=== PATIENT | male | born 1955 | race African-American/Black ===

== ENCOUNTER 2017-11-26 15:36 | Inpatient (IN) ==
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
[2017-11-26] MEDS ORDERED: Naloxone Inj 0.4 MG/ML Vial IV.PUSH PRN (18:40)
[2017-11-26] MEDS ORDERED: Acetaminophen 325 MG Tablet PO PRN (18:40)
[2017-11-26] MEDS ORDERED: Temazepam 15 MG Capsule PO PRN (21:00)
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
[2017-11-27 02:54] LABS: Baso % (Auto) 0.4 % (0.0-2.0); Eos % (Auto) 0.2 % (0.0-4.0); Hematocrit 36.7 % (39.0-51.0); Hemoglobin 12.5 gm/dL (13.0-17.0); Lymph # (Auto) 1.8 th/mm3 (1.0-4.8); Lymph % (Auto) 23.3 % (9.0-44.0); Mean Corpuscular HGB Conc 34.2 % (32.0-36.0); Mean Corpuscular Hemoglobin 27.5 pg (27.0-34.0); Mean Corpuscular Volume 80.6 fL (80.0-100.0); Mono # (Auto) 0.8 th/mm3 (0.0-0.9); Mono % (Auto) 10.9 % (0.0-8.0); Neut # (Auto) 4.9 th/mm3 (1.8-7.7); Neut % (Auto) 65.2 % (16.0-70.0); Platelet Count 253 th/mm3 (150-450); Red Blood Count 4.55 mil/mm3 (4.50-5.90); Red Cell Distribution Width 14.4 % (11.6-17.2); White Blood Count 7.5 th/mm3 (4.0-11.0)
[2017-11-27 03:04] LABS: Activated Partial Thrombo Time 25.1 sec (24.3-30.1); INR 1.1 Ratio; Prothrombin Time 10.7 sec (9.8-11.6)
[2017-11-27 03:09] LABS: Calcium 9.1 mg/dL (8.5-10.1); Potassium 3.9 meq/L (3.5-5.1)
[2017-11-27] MEDS: Sod Chloride 0.9% Inj 1,000 ML IV.CONT SCH ×2 (04:44→12:59)
[2017-11-27] MEDS ORDERED: ceFAZolin 2 GM Premix Inj 2 GM/50 ML PIGGYBACK IV.SIG ONE (07:12)
[2017-11-27] MEDS: Morphine Inj 4 MG/ML Vial IV.PUSH PRN (07:55)
[2017-11-27] MEDS ORDERED: Metoprolol Tartrate 25 MG Tablet PO SCH (08:15)
[2017-11-27] MEDS ORDERED: Chlorhexidine Gluconate 2% 1 Pack (2 Cloths) TOPICAL SCH (08:15)
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
[2017-11-27] MEDS ORDERED: Post-op Orders (for Pharmacy) OTHER STA (08:44)
[2017-11-27] MEDS ORDERED: Bisacodyl 10 MG Supp RECTAL PRN (08:44)
--- NOTE | 2017-11-27 08:52 | P.OP ---
- Preoperative Diagnosis (1) Fracture of tibial plateau, closed (2) Fracture of fibula, proximal Date of procedure: 11/27/17 Procedure: Closed reduction and external fixation of comminuted bicondylar left tibial plateau fracture Implants: Orthofix Anesthesia: GETA Surgeon: Billy Celestin MD Card Doffer: FREYA Tobias PA-C The surgical procedure was assisted by my physician assistant news director. My P.A. presence was necessary throughout this case for the manipulation and positioning of the surgical extremity. My P.A. was assisting me throughout the duration of this procedure. The skill set of a physician assistant news director was medically necessary to complete this procedure. During the surgical case the surgical nurse was working at the back table and the physician assistant news director was directly assisting me. Operation and Findings: This patient sustained an injury resulting in comminuted fractures of [left tibial plateau]. Patient was seen and evaluated preoperatively and found to have too much swelling to proceed with open reduction internal fixation. Risk and benefits of surgery were discussed in depth with patient and informed consent was confirmed. Surgical site was marked. Patient was brought to operating room and placed on the OR table. Patient was given IV sedation and GETA. Patient received IV antibiotics and timeout procedure was performed. Operative leg was prepped with alcohol followed by Hibiclens and draped in the usual sterile fashion. Two small incisions were made along the anterior femur and the tibia. Soft tissue was dissected bluntly. Cannulas were placed down to the cortex of bone. Pin sites were predrilled. Synthes BROWN-coated pins were placed into the femur and tibia. Fluoroscopy was used to confirm appropriate pin placement. An external fixator construct was now created with clamps and bars. Next attention was turned to reduction. Traction was applied. Fracture was manipulated. Good alignment of the fracture was obtained. There is severe comminution of the fracture. Fluoroscopy was used to confirm appropriate alignment of fracture. The external fixator was now tightened to hold reduction. Sterile dressings were applied. Patient was awakened and transferred to recovery room in stable condition. The soft tissue was reevaluated. Patient did have swelling around the knee and calf but compartments were soft and compressible with no signs of compartment syndrome.
[2017-11-27] MEDS ORDERED: Sodium Chlor 0.9% Inj 250 ML IV.SIG SCH (09:00)
[2017-11-27] MEDS ORDERED: Enoxaparin Inj 40 MG/0.4 ML Syringe SQ SCH (09:00)
[2017-11-27] MEDS ORDERED: Sodium Chlor 0.9% Inj 500 ML IV.SIG SCH (09:00)
[2017-11-27] MEDS ORDERED: fentaNYL Citrate Inj 100 MCG/2 ML Ampul ONE (09:04)
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
[2017-11-27] MEDS: Ketorolac Inj 30 MG/ML (IVP) Vial IV.PUSH SCH ×2 (10:18→18:51)
[2017-11-27] MEDS ORDERED: Ketorolac Inj 30 MG/ML (IVP) Vial IV.PUSH ONE (12:00)
[2017-11-27] MEDS ORDERED: Lidocaine PF 1% Inj 5 ML Syringe INFILTRATN ONE (12:00)
[2017-11-27] MEDS ORDERED: Phenylephrine/NS 1000 MCG/10ML Syringe IV.PUSH ONE (12:00)
[2017-11-27] MEDS: Multivitamin/Minerals Therapeutic Tablet PO SCH (12:59)
--- NOTE | 2017-11-27 13:17 | XR ---
EXAM DATE: 11/27/2017 12:49 PM EDT AGE/SEX: 62 years / Male INDICATIONS: Left knee closed reduction, external fixation. CLINICAL DATA: This is the patient's initial encounter. Patient reports that signs and symptoms have been present for 1 day and indicates a pain score of Nonresponsive. MEDICAL/SURGICAL HISTORY: None. None. COMPARISON: No prior exams available for comparison. FINDINGS: 2 pins are seen in the distal tibia. Alignment across the tibial plateau is reasonably anatomic. CONCLUSION: Near-anatomic alignment across the severely comminuted fracture of the tibial plateau with external f ixation. Electronically signed by: Adryan Calvo MD 11/27/2017 1:16 PM EDT
--- NOTE | 2017-11-27 14:13 | ECG ---
Date Performed: 11/27/2017 Time Performed: 06:49:42 PTAGE: 62 years EKG: Sinus rhythm BORDERLINE LEFT AXIS DEVIATION MODERATE VOLTAGE CRITERIA FOR LVH, CONSIDER NORMAL VARIANT BORDERLINE ECG NO PREVIOUS TRACING DOCTOR: Braulio Alanis Interpretating Date/Time 11/27/2017 14:13:08
--- NOTE | 2017-11-27 14:31 | CT ---
EXAM DATE: 11/27/2017 2:04 PM EDT AGE/SEX: 62 years / Male INDICATIONS: Left leg fracture. CLINICAL DATA: This is the patient's initial encounter. Patient reports that signs and symptoms have been present for 1 day and indicates a pain score of 7/10. MEDICAL/SURGICAL HISTORY: None. . External fixator RADIATION DOSE: 8.29 CTDI (mGy) COMPARISON: No prior exams available for comparison. TECHNIQUE: Multiple contiguous axial images were acquired using a multirow detector CT scanner witho ut contrast. Multiplanar reconstruction was performed in the sagittal and coronal planes. Using aut omated exposure control and adjustment of the mA and/or kV according to patient size, radiation dose was kept as low as reasonably achievable to obtain optimal diagnostic quality images. DICOM format i mage data is available electronically for review and comparison. FINDINGS: Bones: A severely comminuted fracture is identified through the tibial plateau. Significant anterior displacement is identified of a large medial tibial plateau fragment. Fragments containing the later al articulating surface are angulated and distracted. Comminuted fracture the proximal fibula is also noted. The distal femur and patella are intact. Joints: Significant disruption is identified of both the medial and lateral joint compartments due t o comminuted fracture. A fat fluid level is identified within the joint space. Soft Tissues: Significant soft tissue swelling is noted in the lower thigh and surrounding the knee joint. There is marked prepatellar soft tissue swelling and hematoma. Other: No foreign bodies seen. CONCLUSION: 1. Severely comminuted fracture of the tibial plateau extending in to both the medial and lateral brittney int compartments with significant fracture fragment displacement. 2. Moderate joint effusion with fat/fluid level. 3. Fractured proximal fibula 4. Intact distal femur and patella Electronically signed by: Brian Ruth MD 11/27/2017 2:30 PM EDT
[2017-11-27] MEDS: ceFAZolin 2 GM Premix Inj 2 GM/50 ML PIGGYBACK IV.SIG SCH (15:50)
[2017-11-27] MEDS: Enoxaparin Inj 40 MG/0.4 ML Syringe SQ SCH (22:40)
[2017-11-28] MEDS: Sod Chloride 0.9% Inj 1,000 ML IV.CONT SCH ×3 (03:08→18:41)
[2017-11-28] MEDS: ceFAZolin 2 GM Premix Inj 2 GM/50 ML PIGGYBACK IV.SIG SCH ×2 (03:09→06:16)
[2017-11-28] MEDS: Ketorolac Inj 30 MG/ML (IVP) Vial IV.PUSH SCH ×3 (03:23→18:41)
--- NOTE | 2017-11-28 06:56 | P.PNOP ---
Subjective Interval history: s/p exfix left tibial plateau fx doing well. states knee feels better. no complaints. Physical Exam Vital signs: Vital Signs 11/27/17 08:55 11/27/17 09:00 11/27/17 09:15 Temperature 98.4 F Pulse Rate 95 H 90 84 Respiratory Rate 20 21 21 Blood Pressure 147/90 H 167/92 H 154/72 H Pulse Oximetry 100 100 100 11/27/17 09:30 11/27/17 10:00 11/27/17 12:00 Temperature 98.4 F 98.1 F Pulse Rate 82 84 92 H Respiratory Rate 22 24 18 Blood Pressure 162/84 H 177/85 H 162/99 H Pulse Oximetry 99 100 94 L 11/27/17 16:00 11/27/17 20:00 11/28/17 00:00 Temperature 98.5 F 99 F 98.4 F Pulse Rate 92 H 108 H 57 L Respiratory Rate 20 20 20 Blood Pressure 160/91 H 148/81 H 162/77 H Pulse Oximetry 99 97 97 11/28/17 04:00 Temperature 99.4 F Pulse Rate 108 H Respiratory Rate 20 Blood Pressure 149/79 H Pulse Oximetry 96 Intake & Output 11/27/17 11/27/17 11/28/17 06:59 18:59 06:59 Intake Total 240 / 240 1020 / 1020 1530 / 1530 Output Total 250 / 250 655 / 655 Balance -10 / -10 365 / 365 1530 / 1530 Weight 97.522 kg 97.52 kg Intake: IV 100 / 100 1050 / 1050 LR 1000 mL Inj 1,000 ML @ 80 1000 / 1000 mls/hr IV.CONT .[id number] DEJA Rx# :[id number] Ancef 2 GM Premix Inj 2 gm In 100 / 100 50 / 50 50 ml @ 200 mls/hr IV.SIG Q8H DEJA Rx#:[id number] Oral 240 / 240 620 / 620 480 / 480 Anesthesia Amount 300 / 300 Output: Urine 250 / 250 650 / 650 Estimated Blood Loss 5 / 5 Other: # Voids 1 # Bowel Movements 0 Narrative: LLE: exfix in place. pin sites clean. nvi distally with good dorsiflexion. 2+ swelling of lower leg. compartments soft Results - Labs CBC & Chem 7: 11/27/17 02:40 11/27/17 02:40 - Imaging Impressions Knee CT 11/27/17 00:00 CONCLUSION: 1. Severely comminuted fracture of the tibial plateau extending in to both the medial and lateral joint compartments with significant fracture fragment displacement. 2. Moderate joint effusion with fat/fluid level. 3. Fractured proximal fibula 4. Intact distal femur and patella Knee X-Ray 11/27/17 00:00 CONCLUSION: Near-anatomic alignment across the severely comminuted fracture of the tibial plateau with external fixation. - Procedures Closed reduction and external fixation of comminuted bicondylar left tibial plateau fracture Assessment and Plan - Assessment and Plan 1) Left Bicondylar Tibial Plateau Fx s/p exfix - POD 1 -NWB -elevate at all times -ice down knee and lower leg with large trash bags of ice -toradol -pin care BID with saline/peroxide mix -will re-eval each day for swelling to improve. once swelling is at acceptable level, will plan for ORIF of tibial plateau
[2017-11-28 08:25] LABS: Baso # (Auto) 0.1 th/mm3 (0.0-0.2); Baso % (Auto) 0.8 % (0.0-2.0); Eos % (Auto) 0.2 % (0.0-4.0); Hematocrit 30.8 % (39.0-51.0); Hemoglobin 10.3 gm/dL (13.0-17.0); Lymph # (Auto) 2.4 th/mm3 (1.0-4.8); Lymph % (Auto) 27.1 % (9.0-44.0); Mean Corpuscular HGB Conc 33.6 % (32.0-36.0); Mean Corpuscular Hemoglobin 27.5 pg (27.0-34.0); Mean Corpuscular Volume 81.9 fL (80.0-100.0); Mean Platelet Volume 8.2 fL (7.0-11.0); Mono # (Auto) 1.1 th/mm3 (0.0-0.9); Mono % (Auto) 11.8 % (0.0-8.0); Neut # (Auto) 5.4 th/mm3 (1.8-7.7); Neut % (Auto) 60.1 % (16.0-70.0); Platelet Count 209 th/mm3 (150-450); Red Blood Count 3.76 mil/mm3 (4.50-5.90); Red Cell Distribution Width 14.4 % (11.6-17.2)
[2017-11-28] MEDS: Multivitamin/Minerals Therapeutic Tablet PO SCH (08:44)
[2017-11-28] MEDS: Enoxaparin Inj 40 MG/0.4 ML Syringe SQ SCH (08:44)
[2017-11-28 08:47] LABS: Calcium 8.7 mg/dL (8.5-10.1); Carbon Dioxide 23.9 meq/L (21.0-32.0); Magnesium 2.5 mg/dL (1.5-2.5); Potassium 3.9 meq/L (3.5-5.1)
[2017-11-28 09:06] LABS: CKMB Percent 0.2 % (0.0-4.0); Creatine Kinase MB 1.6 ng/mL (0.5-3.6)
--- NOTE | 2017-11-28 15:25 | P.PN ---
Subjective Interval history: F/u anemia and PAWAN. No complaints Physical Exam Vital signs: Vital Signs 11/27/17 16:00 11/27/17 20:00 11/28/17 00:00 Temperature 98.5 F 99 F 98.4 F Pulse Rate 92 H 108 H 57 L Respiratory Rate 20 20 20 Blood Pressure 160/91 H 148/81 H 162/77 H Pulse Oximetry 99 97 97 11/28/17 04:00 11/28/17 08:00 11/28/17 12:00 Temperature 99.4 F 97.9 F 98.4 F Pulse Rate 108 H 86 118 H Respiratory Rate 20 18 Blood Pressure 149/79 H 115/72 142/74 H Pulse Oximetry 96 98 100 11/28/17 13:00 Temperature Pulse Rate Respiratory Rate 18 Blood Pressure Pulse Oximetry Intake & Output 11/27/17 11/28/17 11/28/17 18:59 06:59 18:59 Intake Total 1020 / 1020 1530 / 1530 50 / 50 Output Total 655 / 655 Balance 365 / 365 1530 / 1530 50 / 50 Weight 97.52 kg Intake: IV 100 / 100 1050 / 1050 50 / 50 LR 1000 mL Inj 1,000 ML @ 80 1000 / 1000 mls/hr IV.CONT .[id number] DEJA Rx# :[id number] Ancef 2 GM Premix Inj 2 gm In 100 / 100 50 / 50 50 / 50 50 ml @ 200 mls/hr IV.SIG Q8H DEJA Rx#:[id number] Oral 620 / 620 480 / 480 Anesthesia Amount 300 / 300 Output: Urine 650 / 650 Estimated Blood Loss 5 / 5 Other: # Voids 1 # Bowel Movements 0 Narrative: GENERAL: This is a well-nourished, well-developed patient, in no apparent distress. CARDIOVASCULAR: Regular rate and rhythm without murmurs, gallops, or rubs. RESPIRATORY: Clear to auscultation. Breath sounds equal bilaterally. No wheezes , rales, or rhonchi. GASTROINTESTINAL: Abdomen soft, non-tender, nondistended. Normal active bowel sounds MUSCULOSKELETAL: Ex fix in place NEURO: Alert & Oriented x4 to person, place, time, situation. Moves all ext x4 Results - Labs CBC & Chem 7: 11/28/17 07:53 11/28/17 07:53 Laboratory Results - last 24 hr 11/28/17 11/28/17 07:53 07:53 WBC 9.0 RBC 3.76 L Hgb 10.3 L D Hct 30.8 L MCV 81.9 MCH 27.5 MCHC 33.6 RDW 14.4 Plt Count 209 MPV 8.2 Neut % (Auto) 60.1 Lymph % (Auto) 27.1 Gage % (Auto) 11.8 H Eos % (Auto) 0.2 Baso % (Auto) 0.8 Neut # (Auto) 5.4 Lymph # (Auto) 2.4 Gage # (Auto) 1.1 H Eos # (Auto) 0.0 Baso # (Auto) 0.1 WBC Differential . Differential Comment Auto diff final Sodium 143 Potassium 3.9 Chloride 109 H Carbon Dioxide 23.9 Anion Gap 10 BUN 24 H Creatinine 1.49 H Estimated GFR 58 L Random Glucose 99 Calcium 8.7 Magnesium 2.5 Total Creatine Kinase 934 H CK-MB (CK-2) 1.6 CK-MB (CK-2) % 0.2 - Procedures Closed reduction and external fixation of comminuted bicondylar left tibial plateau fracture Assessment and Plan - Assessment (1) Fracture of tibial plateau, closed Code(s): S82.143A - Displaced bicondylar fracture of unspecified tibia, initial encounter for closed fracture Status: Acute (2) Fracture of fibula, proximal Code(s): S82.839A - Other fracture of upper and lower end of unspecified fibula , initial encounter for closed fracture Status: Acute - Plan 1. Tibial plateau fracture Knee x-ray significant for extremely comminuted fractures of the proximal tibia involving the medial and lateral plateaus with a comminuted and impacted fracture of the fibular head and neck Closed reduction and external fixation of comminuted bicondylar left tibial plateau fracture. Further surgery by orthopedic surgery when swelling much improved. Continue ice 2. Anemia secondary to acute blood loss. Will monitor Pain control with Lortab and IV morphine. Physical therapy evaluation Wound care #3. Acute kidney injury creatinine 1.49. Likely from rhabdomyolysis will continue IV hydration. Avoid nephrotoxins FEN Pharmacologic anticoagulation per ortho started on Lovenox Discharge Planning: Not ready for discharge patient has external fixator (1) Fracture of tibial plateau, closed Qualifiers: Encounter type: initial encounter Laterality: left Qualified Code(s): S82.142A - Displaced bicondylar fracture of left tibia, initial encounter for closed fracture (2) Fracture of fibula, proximal Qualifiers: Encounter type: initial encounter Fracture type: closed Fracture morphology : unspecified fracture morphology Laterality: left Qualified Code(s): S82.832A - Other fracture of upper and lower end of left fibula, initial encounter for closed fracture
[2017-11-28] MEDS: Promethazine 25 MG Supp RECTAL PRN (15:32)
[2017-11-29] MEDS: Ketorolac Inj 30 MG/ML (IVP) Vial IV.PUSH SCH (01:15)
[2017-11-29] MEDS: Sod Chloride 0.9% Inj 1,000 ML IV.CONT SCH ×2 (05:56→20:36)
[2017-11-29 07:28] LABS: Baso % (Auto) 0.5 % (0.0-2.0); Eos # (Auto) 0.1 th/mm3 (0.0-0.4); Eos % (Auto) 0.6 % (0.0-4.0); Hematocrit 29.5 % (39.0-51.0); Lymph # (Auto) 2.2 th/mm3 (1.0-4.8); Mean Corpuscular Hemoglobin 27.8 pg (27.0-34.0); Mean Corpuscular Volume 81.7 fL (80.0-100.0); Mean Platelet Volume 8.2 fL (7.0-11.0); Mono # (Auto) 0.7 th/mm3 (0.0-0.9); Mono % (Auto) 8.3 % (0.0-8.0); Neut # (Auto) 5.2 th/mm3 (1.8-7.7); Neut % (Auto) 63.6 % (16.0-70.0); Platelet Count 219 th/mm3 (150-450); Red Blood Count 3.61 mil/mm3 (4.50-5.90); Red Cell Distribution Width 14.2 % (11.6-17.2); White Blood Count 8.3 th/mm3 (4.0-11.0)
[2017-11-29 07:51] LABS: Calcium 8.6 mg/dL (8.5-10.1); Carbon Dioxide 26.2 meq/L (21.0-32.0); Magnesium 2.3 mg/dL (1.5-2.5); Potassium 3.7 meq/L (3.5-5.1)
[2017-11-29 08:11] LABS: CKMB Percent 0.2 % (0.0-4.0); Creatine Kinase MB 1.2 ng/mL (0.5-3.6)
[2017-11-29] MEDS: Multivitamin/Minerals Therapeutic Tablet PO SCH (08:32)
[2017-11-29] MEDS: Enoxaparin Inj 40 MG/0.4 ML Syringe SQ SCH (08:32)
--- NOTE | 2017-11-29 08:55 | P.PNOP ---
Subjective Interval history: Resting comfortably with no new complaints Physical Exam Vital signs: Vital Signs 11/28/17 12:00 11/28/17 13:00 11/28/17 16:00 Temperature 98.4 F 98.1 F Pulse Rate 118 H 57 L Respiratory Rate 18 Blood Pressure 142/74 H 167/79 H Pulse Oximetry 100 98 11/28/17 20:00 11/29/17 00:00 11/29/17 00:21 Temperature 99.3 F 99.2 F Pulse Rate 91 H 97 H 91 H Respiratory Rate 18 18 Blood Pressure 152/92 H 167/102 H 162/96 H Pulse Oximetry 98 98 11/29/17 04:00 11/29/17 08:00 Temperature 99.1 F 98.7 F Pulse Rate 88 81 Respiratory Rate 18 18 Blood Pressure 143/87 H 164/91 H Pulse Oximetry 96 99 Intake & Output 11/28/17 11/29/17 11/29/17 18:59 06:59 18:59 Intake Total 2670 / 2670 240 / 240 Output Total 650 / 650 750 / 750 Balance 2019 -510 / -510 Weight 97.52 kg Intake: IV 2049 / 2049 LR 1000 mL Inj 1,000 ML @ 80 1000 / 1000 mls/hr IV.CONT .[id number] DEJA Rx# :[id number] NS Inj 1,000 ML @ 100 mls/hr IV 1000 / 1000 .CONT .Q10H DEJA Rx#:[id number] Ancef 2 GM Premix Inj 2 gm In 50 / 50 50 ml @ 200 mls/hr IV.SIG Q8H DEJA Rx#:[id number] Oral 620 / 620 240 / 240 Output: Urine 650 / 650 750 / 750 Other: # Bowel Movements 0 Narrative: GENERAL: This is a well-nourished, well-developed patient, in no apparent distress. Left lower extremity: No pain with hip range of motion. External fixation in place. Pin sites clean and dry. Continued swelling over tibial plateau and surrounding knee. Intact sensation distally with active dorsiflexion plantar flexion of foot Results - Labs CBC & Chem 7: 11/29/17 06:06 11/29/17 06:06 Laboratory Results - last 24 hr 11/28/17 11/29/17 11/29/17 07:53 06:06 06:06 WBC 8.3 RBC 3.61 L Hgb 10.0 L Hct 29.5 L MCV 81.7 MCH 27.8 MCHC 34.0 RDW 14.2 Plt Count 219 MPV 8.2 Neut % (Auto) 63.6 Lymph % (Auto) 27.0 Dillon % (Auto) 8.3 H Eos % (Auto) 0.6 Baso % (Auto) 0.5 Neut # (Auto) 5.2 Lymph # (Auto) 2.2 Dillon # (Auto) 0.7 Eos # (Auto) 0.1 Baso # (Auto) 0.0 WBC Differential . Differential Comment Auto diff final Sodium 143 Potassium 3.7 Chloride 109 H Carbon Dioxide 26.2 Anion Gap 8 BUN 16 Creatinine 1.19 Estimated GFR 75 L Random Glucose 103 Calcium 8.6 Magnesium 2.3 Total Creatine Kinase 762 H CK-MB (CK-2) 1.6 1.2 CK-MB (CK-2) % 0.2 0.2 - Procedures Closed reduction and external fixation of comminuted bicondylar left tibial plateau fracture Assessment and Plan - Assessment and Plan 1) Left Bicondylar Tibial Plateau Fx s/p exfix - POD 2 -NWB -elevate at all times -ice down knee and lower leg with large trash bags of ice -toradol -pin care BID with saline/peroxide mix -will re-eval each day for swelling to improve. once swelling is at acceptable level, will plan for ORIF of tibial plateau. I anticipate no earlier than Saturday for surgery
[2017-11-29] MEDS: Senna/Docusate Sodium 8.6/50 MG Tablet PO SCH ×2 (13:13→20:33)
[2017-11-29] MEDS: Promethazine 25 MG Supp RECTAL PRN (13:14)
--- NOTE | 2017-11-29 17:18 | P.PN ---
Subjective Interval history: Follow-up orthopedic injury. Patient has been having nausea and vomiting and no bowel movement for several days. Patient started on bowel regimen earlier today after discussion with RN. At this time, he feels much better after having bowel movement about 30 minutes ago. Denies abdominal pain. Patient also educated that nausea and vomiting could be related to pain medicines. Physical Exam Vital signs: Vital Signs 11/28/17 20:00 11/29/17 00:00 11/29/17 00:21 Temperature 99.3 F 99.2 F Pulse Rate 91 H 97 H 91 H Respiratory Rate 18 18 Blood Pressure 152/92 H 167/102 H 162/96 H Pulse Oximetry 98 98 11/29/17 04:00 11/29/17 08:00 11/29/17 12:00 Temperature 99.1 F 98.7 F 98.7 F Pulse Rate 88 81 84 Respiratory Rate 18 18 20 Blood Pressure 143/87 H 164/91 H 174/87 H Pulse Oximetry 96 99 97 Intake & Output 11/28/17 11/29/17 11/29/17 18:59 06:59 18:59 Intake Total 2670 / 2670 240 / 240 Output Total 650 / 650 750 / 750 Balance 2019 / 2019 -510 / -510 Weight 97.52 kg Intake: IV 2049 / 2049 LR 1000 mL Inj 1,000 ML @ 80 1000 / 1000 mls/hr IV.CONT .[id number] DEJA Rx# :[id number] NS Inj 1,000 ML @ 100 mls/hr IV 1000 / 1000 .CONT .Q10H DEJA Rx#:[id number] Ancef 2 GM Premix Inj 2 gm In 50 / 50 50 ml @ 200 mls/hr IV.SIG Q8H DEJA Rx#:[id number] Oral 620 / 620 240 / 240 Output: Urine 650 / 650 750 / 750 Other: # Bowel Movements 0 Narrative: GENERAL: Well-developed and well-nourished in no distress SKIN: Warm and dry. CARDIOVASCULAR: Regular rate and rhythm without murmurs, gallops, or rubs. RESPIRATORY: Breath sounds equal bilaterally. No accessory muscle use. GASTROINTESTINAL: Abdomen soft, non-tender, nondistended. MUSCULOSKELETAL: No cyanosis, or edema. External fixator in place BACK: Nontender without obvious deformity. No CVA tenderness. Results - Labs CBC & Chem 7: 11/29/17 06:06 11/29/17 06:06 Laboratory Results - last 24 hr 11/29/17 11/29/17 06:06 06:06 WBC 8.3 RBC 3.61 L Hgb 10.0 L Hct 29.5 L MCV 81.7 MCH 27.8 MCHC 34.0 RDW 14.2 Plt Count 219 MPV 8.2 Neut % (Auto) 63.6 Lymph % (Auto) 27.0 [place] % (Auto) 8.3 H Eos % (Auto) 0.6 Baso % (Auto) 0.5 Neut # (Auto) 5.2 Lymph # (Auto) 2.2 [place] # (Auto) 0.7 Eos # (Auto) 0.1 Baso # (Auto) 0.0 WBC Differential . Differential Comment Auto diff final Sodium 143 Potassium 3.7 Chloride 109 H Carbon Dioxide 26.2 Anion Gap 8 BUN 16 Creatinine 1.19 Estimated GFR 75 L Random Glucose 103 Calcium 8.6 Magnesium 2.3 Total Creatine Kinase 762 H CK-MB (CK-2) 1.2 CK-MB (CK-2) % 0.2 - Procedures Closed reduction and external fixation of comminuted bicondylar left tibial plateau fracture Assessment and Plan - Assessment (1) Fracture of tibial plateau, closed Code(s): S82.143A - Displaced bicondylar fracture of unspecified tibia, initial encounter for closed fracture Status: Acute (2) Fracture of fibula, proximal Code(s): S82.839A - Other fracture of upper and lower end of unspecified fibula , initial encounter for closed fracture Status: Acute - Plan 1. Tibial plateau fracture Knee x-ray significant for extremely comminuted fractures of the proximal tibia involving the medial and lateral plateaus with a comminuted and impacted fracture of the fibular head and neck Closed reduction and external fixation of comminuted bicondylar left tibial plateau fracture. Further surgery by orthopedic surgery when swelling much improved, anticipate surgery early next week. Continue ice Pain control with Lortab and IV morphine. Physical therapy evaluation Wound care 2. Anemia secondary to acute blood loss. Will monitor 3. Acute kidney injury creatinine 1.49. Likely from rhabdomyolysis will continue IV hydration. Improving. Avoid nephrotoxins 4. Constipation with nausea and vomiting. Denies abdominal pain. Improved with bowel regimen. If persistent nausea may be related to narcotic. Will monitor FEN Pharmacologic anticoagulation per ortho started on Lovenox Discharge Planning: Not ready for discharge patient has external fixator (1) Fracture of tibial plateau, closed Qualifiers: Encounter type: initial encounter Laterality: left Qualified Code(s): S82.142A - Displaced bicondylar fracture of left tibia, initial encounter for closed fracture (2) Fracture of fibula, proximal Qualifiers: Encounter type: initial encounter Fracture type: closed Fracture morphology : unspecified fracture morphology Laterality: left Qualified Code(s): S82.832A - Other fracture of upper and lower end of left fibula, initial encounter for closed fracture
[2017-11-30] MEDS: Sod Chloride 0.9% Inj 1,000 ML IV.CONT SCH (00:26)
[2017-11-30 08:17] LABS: Baso % (Auto) 0.5 % (0.0-2.0); Eos # (Auto) 0.1 th/mm3 (0.0-0.4); Hematocrit 30.8 % (39.0-51.0); Hemoglobin 10.2 gm/dL (13.0-17.0); Lymph # (Auto) 2.2 th/mm3 (1.0-4.8); Lymph % (Auto) 29.7 % (9.0-44.0); Mean Corpuscular Volume 81.8 fL (80.0-100.0); Mean Platelet Volume 7.8 fL (7.0-11.0); Mono # (Auto) 0.6 th/mm3 (0.0-0.9); Mono % (Auto) 8.4 % (0.0-8.0); Neut # (Auto) 4.4 th/mm3 (1.8-7.7); Neut % (Auto) 60.4 % (16.0-70.0); Platelet Count 262 th/mm3 (150-450); Red Blood Count 3.77 mil/mm3 (4.50-5.90); Red Cell Distribution Width 13.9 % (11.6-17.2); White Blood Count 7.3 th/mm3 (4.0-11.0)
[2017-11-30 08:35] LABS: Carbon Dioxide 26.7 meq/L (21.0-32.0); Magnesium 2.4 mg/dL (1.5-2.5); Potassium 3.7 meq/L (3.5-5.1)
[2017-11-30] MEDS: Multivitamin/Minerals Therapeutic Tablet PO SCH (09:35)
[2017-11-30] MEDS: Senna/Docusate Sodium 8.6/50 MG Tablet PO SCH ×2 (09:35→23:20)
[2017-11-30] MEDS: Enoxaparin Inj 40 MG/0.4 ML Syringe SQ SCH (09:35)
[2017-11-30] MEDS ORDERED: Aluminum/Magnesium/Simethacone Susp 30 ML UDC PO PRN (16:47)
--- NOTE | 2017-11-30 16:51 | P.PN ---
Subjective Interval history: F/u nausea, vomiting. Intermittent N/v with epig pain not related to meals Physical Exam Vital signs: Vital Signs 11/29/17 20:00 11/30/17 00:00 11/30/17 08:00 Temperature 99.2 F 98.3 F 98.3 F Pulse Rate 97 H 88 98 H Respiratory Rate 16 17 20 Blood Pressure 161/98 H 158/94 H 156/88 H Pulse Oximetry 98 97 98 11/30/17 12:00 Temperature 98.9 F Pulse Rate 80 Respiratory Rate 18 Blood Pressure 166/95 H Pulse Oximetry 97 Intake & Output 11/29/17 11/30/17 11/30/17 18:59 06:59 18:59 Intake Total 640 / 640 3600 / 3600 Balance 640 / 640 3600 / 3600 Weight 97.52 kg Intake: IV 2000 / 2000 LR 1000 mL Inj 1,000 ML @ 80 1000 / 1000 mls/hr IV.CONT .[id number] DEJA Rx# :[id number] NS Inj 1,000 ML @ 100 mls/hr IV 1000 / 1000 .CONT .Q10H DEJA Rx#:[id number] Oral 640 / 640 1600 / 1600 Other: # Voids 4 5 # Bowel Movements 1 Narrative: GENERAL: Well-developed and well-nourished in no distress SKIN: Warm and dry. CARDIOVASCULAR: Regular rate and rhythm without murmurs, gallops, or rubs. RESPIRATORY: Breath sounds equal bilaterally. No accessory muscle use. GASTROINTESTINAL: Abdomen soft, sl epig tenderness, nondistended. MUSCULOSKELETAL: No cyanosis, or edema. External fixator in place BACK: Nontender without obvious deformity. No CVA tenderness. Results - Labs CBC & Chem 7: 11/30/17 07:31 11/30/17 07:31 Laboratory Results - last 24 hr 11/30/17 11/30/17 07:31 07:31 WBC 7.3 RBC 3.77 L Hgb 10.2 L Hct 30.8 L MCV 81.8 MCH 27.0 MCHC 33.0 RDW 13.9 Plt Count 262 MPV 7.8 Neut % (Auto) 60.4 Lymph % (Auto) 29.7 Dewitt % (Auto) 8.4 H Eos % (Auto) 1.0 Baso % (Auto) 0.5 Neut # (Auto) 4.4 Lymph # (Auto) 2.2 Dewitt # (Auto) 0.6 Eos # (Auto) 0.1 Baso # (Auto) 0.0 WBC Differential . Differential Comment Auto diff final Sodium 142 Potassium 3.7 Chloride 105 Carbon Dioxide 26.7 Anion Gap 10 BUN 12 Creatinine 1.06 Estimated GFR 85 L Random Glucose 124 H Calcium 9.0 Magnesium 2.4 - Procedures Closed reduction and external fixation of comminuted bicondylar left tibial plateau fracture Assessment and Plan - Assessment (1) Fracture of tibial plateau, closed Code(s): S82.143A - Displaced bicondylar fracture of unspecified tibia, initial encounter for closed fracture Status: Acute (2) Fracture of fibula, proximal Code(s): S82.839A - Other fracture of upper and lower end of unspecified fibula , initial encounter for closed fracture Status: Acute - Plan 1. Tibial plateau fracture Knee x-ray significant for extremely comminuted fractures of the proximal tibia involving the medial and lateral plateaus with a comminuted and impacted fracture of the fibular head and neck Closed reduction and external fixation of comminuted bicondylar left tibial plateau fracture. Further surgery by orthopedic surgery when swelling much improved, anticipate surgery early next week. Continue ice Pain control with Lortab and IV morphine. Physical therapy evaluation Wound care 2. Anemia secondary to acute blood loss. Will monitor 3. Acute kidney injury creatinine 1.49. Likely from rhabdomyolysis will continue IV hydration. Improving. Avoid nephrotoxins 4. Constipation. Improved with bowel regimen. 5. Epig pain with N/V. Check LFTS and A CT. Start PPi. Pharmacologic anticoagulation per ortho started on Lovenox Discharge Planning: Not ready for discharge patient has external fixator (1) Fracture of tibial plateau, closed Qualifiers: Encounter type: initial encounter Laterality: left Qualified Code(s): S82.142A - Displaced bicondylar fracture of left tibia, initial encounter for closed fracture (2) Fracture of fibula, proximal Qualifiers: Encounter type: initial encounter Fracture type: closed Fracture morphology : unspecified fracture morphology Laterality: left Qualified Code(s): S82.832A - Other fracture of upper and lower end of left fibula, initial encounter for closed fracture
[2017-11-30] MEDS ORDERED: Diatrizoate Meglum/Diatrizoate Sod Liq 9 ML UDC PO ONE (17:45)
[2017-11-30 22:24] LABS: Albumin 3.3 g/dL (3.4-5.0)
[2017-11-30 22:26] LABS: Total Protein 7.4 g/dL (6.4-8.2)
--- NOTE | 2017-11-30 23:14 | CT ---
EXAM DATE: 11/30/2017 11:04 PM EDT AGE/SEX: 62 years / Male INDICATIONS: Epigastric pain. CLINICAL DATA: This is the patient's initial encounter. Patient reports that signs and symptoms have been present for 1 day and indicates a pain score of 6/10. MEDICAL/SURGICAL HISTORY: None. None. ORAL CONTRAST: Prescribed oral contrast ingested. RADIATION DOSE: 15.21 CTDI (mGy) COMPARISON: No prior exams available for comparison. TECHNIQUE: Multiple contiguous axial images were obtained through the abdomen following bolus infusi on of 96 ml Omnipaque 350 (iohexol) nonionic water-soluble contrast as a single exam dose. Prescrib ed oral contrast ingested. Using automated exposure control and adjustment of the mA and/or kV accor ding to patient size, radiation dose was kept as low as reasonably achievable to obtain optimal diagn ostic quality images. DICOM format image data is available electronically for review and comparison. FINDINGS: Lower Lungs: Slight scarring or atelectasis in the posterior lung bases. Liver: Multiple tiny hepatic hypodensities present involving both right and left lobes, none larger t molina 5 or 6 mm in size and potentially all cysts or hemangiomata. No definite suspicious lesions. No b iliary ductal dilatation. Spleen: Homogeneous density without enlargement. Pancreas: Unremarkable without mass or calcification. Kidneys: Normal in size and shape. No evidence of mass or hydronephrosis. Adrenal Glands: Slightly greater than 1 cm low density nodule involving the central parenchyma of t he left adrenal gland. Aorta/Retroperitoneum: The aorta is grossly unremarkable without aneurysmal dilation. No paraaortic or retrocrural adenopathy. Bowel/Mesentery: The bowel loops are grossly unremarkable. Abdominal Wall: Intact. Incompletely seen lipomatous mass involving the lateral right chest wall jus t anterior to and inferior to the scapular tip which has a benign appearance Bony Structures: Unremarkable. CONCLUSION: 1. Multiple tiny hepatic lesions which are felt probably benign. 2. Small left adrenal mass, also probably benign. 3. Further characterization of these findings with elective outpatient chemical shift and contrasted MRI of the abdomen suggested 4. Incompletely seen lipomatous mass involving the lateral right chest wall. This lesion could also be evaluated electively with MRI to verify that the entire lesion is seen and there are no suspicious features 5. No acute CT findings in the abdomen. Electronically signed by: Paul Manning MD 11/30/2017 11:12 PM EDT
[2017-11-30] MEDS: Famotidine 20 MG Tablet PO SCH (23:20)
[2017-11-30] MEDS: KCL 20 mEq/NACL 0.45% Inj 1,000 ML IV.CONT SCH (23:21)
[2017-12-01] MEDS: Multivitamin/Minerals Therapeutic Tablet PO SCH (10:31)
[2017-12-01] MEDS: Famotidine 20 MG Tablet PO SCH ×2 (10:32→22:13)
[2017-12-01] MEDS: Enoxaparin Inj 40 MG/0.4 ML Syringe SQ SCH (10:32)
[2017-12-01] MEDS: Senna/Docusate Sodium 8.6/50 MG Tablet PO SCH ×2 (10:32→22:13)
[2017-12-01] MEDS: hydroCHLOROthiazide 25 MG Tablet PO SCH (10:35)
[2017-12-01] MEDS: KCL 20 mEq/NACL 0.45% Inj 1,000 ML IV.CONT SCH ×3 (13:00→23:00)
--- NOTE | 2017-12-01 13:21 | P.PN ---
Subjective Interval history: Follow-up nausea, vomiting and constipation. Today he feels better after having bowel movement. Denies abdominal pain CT scan results discussed with patient and Physical Exam Vital signs: Vital Signs 11/30/17 20:00 12/01/17 00:00 12/01/17 12:00 Temperature 99.3 F 99.6 F 98.2 F Pulse Rate 92 H 84 80 Respiratory Rate 20 20 16 Blood Pressure 154/92 H 165/101 H 160/95 H Pulse Oximetry 97 95 95 Intake & Output 11/30/17 12/01/17 12/01/17 18:59 06:59 18:59 Intake Total 1800 / 1800 480 / 480 Balance 1800 / 1800 480 / 480 Intake: Oral 1800 / 1800 480 / 480 Other: # Voids 3 4 # Bowel Movements 0 3 Narrative: GENERAL: Well-developed and well-nourished in no distress SKIN: Warm and dry. CARDIOVASCULAR: Regular rate and rhythm without murmurs, gallops, or rubs. RESPIRATORY: Breath sounds equal bilaterally. No accessory muscle use. GASTROINTESTINAL: Abdomen soft, no epig tenderness, nondistended. MUSCULOSKELETAL: No cyanosis, or edema. External fixator in place BACK: Nontender without obvious deformity. No CVA tenderness. Results - Labs CBC & Chem 7: 11/30/17 07:31 11/30/17 07:31 Laboratory Results - last 24 hr 11/30/17 07:31 Sodium 142 Potassium 3.7 Chloride 105 Carbon Dioxide 26.7 Anion Gap 10 BUN 12 Creatinine 1.06 Estimated GFR 85 L Random Glucose 124 H Calcium 9.0 Magnesium 2.4 Total Bilirubin 0.4 Direct Bilirubin 0.1 Indirect Bilirubin 0.3 AST 38 H ALT 54 Alkaline Phosphatase 74 Total Protein 7.4 Albumin 3.3 L - Imaging Impressions Abdomen CT 11/30/17 00:00 CONCLUSION: 1. Multiple tiny hepatic lesions which are felt probably benign. 2. Small left adrenal mass, also probably benign. 3. Further characterization of these findings with elective outpatient chemical shift and contrasted MRI of the abdomen suggested 4. Incompletely seen lipomatous mass involving the lateral right chest wall. This lesion could also be evaluated electively with MRI to verify that the entire lesion is seen and there are no suspicious features 5. No acute CT findings in the abdomen. - Procedures Closed reduction and external fixation of comminuted bicondylar left tibial plateau fracture Assessment and Plan - Assessment (1) Fracture of tibial plateau, closed Code(s): S82.143A - Displaced bicondylar fracture of unspecified tibia, initial encounter for closed fracture Status: Acute (2) Fracture of fibula, proximal Code(s): S82.839A - Other fracture of upper and lower end of unspecified fibula , initial encounter for closed fracture Status: Acute - Plan 1. Tibial plateau fracture Knee x-ray significant for extremely comminuted fractures of the proximal tibia involving the medial and lateral plateaus with a comminuted and impacted fracture of the fibular head and neck Closed reduction and external fixation of comminuted bicondylar left tibial plateau fracture. Further surgery by orthopedic surgery when swelling much improved, anticipate surgery early next week. Continue ice Pain control with Lortab and IV morphine. Physical therapy evaluation Wound care 2. Anemia secondary to acute blood loss. Will monitor 3. Acute kidney injury creatinine 1.49. Likely from rhabdomyolysis will continue IV hydration. Improving. Avoid nephrotoxins 4. Constipation. Improved with bowel regimen. 5. Epig pain with N/V. LFTs and lipase unremarkable. Abdominal CT also unremarkable. Improving continue PPi. If worse GI consult 6. Tiny hepatic lesions and left adrenal gland mass likely benign. Also lipomatous changes in the right lateral chest wall. MRI o/p. Pharmacologic anticoagulation per ortho started on Lovenox Discharge Planning: Not ready for discharge patient has external fixator (1) Fracture of tibial plateau, closed Qualifiers: Encounter type: initial encounter Laterality: left Qualified Code(s): S82.142A - Displaced bicondylar fracture of left tibia, initial encounter for closed fracture (2) Fracture of fibula, proximal Qualifiers: Encounter type: initial encounter Fracture type: closed Fracture morphology : unspecified fracture morphology Laterality: left Qualified Code(s): S82.832A - Other fracture of upper and lower end of left fibula, initial encounter for closed fracture
[2017-12-02] MEDS: Famotidine 20 MG Tablet PO SCH ×2 (09:28→20:37)
[2017-12-02] MEDS: hydroCHLOROthiazide 25 MG Tablet PO SCH (09:28)
[2017-12-02] MEDS: Senna/Docusate Sodium 8.6/50 MG Tablet PO SCH ×2 (09:28→20:38)
[2017-12-02] MEDS: Multivitamin/Minerals Therapeutic Tablet PO SCH (09:28)
[2017-12-02] MEDS: Enoxaparin Inj 40 MG/0.4 ML Syringe SQ SCH (09:29)
[2017-12-02] MEDS: KCL 20 mEq/NACL 0.45% Inj 1,000 ML IV.CONT SCH ×2 (09:31→20:37)
[2017-12-02 10:00] LABS: Calcium 9.4 mg/dL (8.5-10.1); Carbon Dioxide 25.2 meq/L (21.0-32.0); Potassium 3.9 meq/L (3.5-5.1)
--- NOTE | 2017-12-02 13:52 | P.PN ---
Subjective Interval history: Follow-up vomiting and hypertension. Today he feels better without nausea. Had transient epigastric discomfort. Large bowel movement yesterday. Physical Exam Vital signs: Vital Signs 12/01/17 20:00 12/02/17 00:00 12/02/17 08:00 Temperature 98.7 F 98.3 F 97.8 F Pulse Rate 99 H 83 86 Respiratory Rate 16 16 19 Blood Pressure 165/98 H 125/82 139/88 Pulse Oximetry 96 98 96 12/02/17 12:00 Temperature 98.1 F Pulse Rate 89 Respiratory Rate 16 Blood Pressure 144/89 H Pulse Oximetry 96 Intake & Output 12/01/17 12/02/17 12/02/17 18:59 06:59 18:59 Intake Total 3080 / 3080 1000 / 1000 1000 / 1000 Balance 3080 / 3080 1000 / 1000 1000 / 1000 Intake: IV 1000 / 1000 1000 / 1000 1000 / 1000 Potassium Chlor 20 mEq/NACL 0. 1000 / 1000 1000 / 1000 1000 / 1000 45% Inj 1,000 ML @ 100 mls/hr IV.CONT .Q10H DEJA Rx#:[id number] Oral 2079 / 2079 Other: # Voids 5 Date of Last Bowel Movement 12/01/17 # Bowel Movements 1 Narrative: GENERAL: Well-developed and well-nourished in no distress SKIN: Warm and dry. CARDIOVASCULAR: Regular rate and rhythm without murmurs, gallops, or rubs. RESPIRATORY: Breath sounds equal bilaterally. No accessory muscle use. GASTROINTESTINAL: Abdomen soft, no epig tenderness, nondistended. MUSCULOSKELETAL: No cyanosis, or edema. External fixator in place BACK: Nontender without obvious deformity. No CVA tenderness. Results - Labs CBC & Chem 7: 11/30/17 07:31 12/02/17 08:47 Laboratory Results - last 24 hr 12/02/17 12/02/17 08:47 08:47 Sodium 136 Potassium 3.9 Chloride 99 Carbon Dioxide 25.2 Anion Gap 12 BUN 14 Creatinine 1.18 Estimated GFR 75 L Random Glucose 104 Calcium 9.4 Magnesium 2.3 - Imaging ITS Impressions Knee CT 11/27/17 00:00 CONCLUSION: 1. Severely comminuted fracture of the tibial plateau extending in to both the medial and lateral joint compartments with significant fracture fragment displacement. 2. Moderate joint effusion with fat/fluid level. 3. Fractured proximal fibula 4. Intact distal femur and patella Knee X-Ray 11/27/17 00:00 CONCLUSION: Near-anatomic alignment across the severely comminuted fracture of the tibial plateau with external fixation. Abdomen CT 11/30/17 00:00 CONCLUSION: 1. Multiple tiny hepatic lesions which are felt probably benign. 2. Small left adrenal mass, also probably benign. 3. Further characterization of these findings with elective outpatient chemical shift and contrasted MRI of the abdomen suggested 4. Incompletely seen lipomatous mass involving the lateral right chest wall. This lesion could also be evaluated electively with MRI to verify that the entire lesion is seen and there are no suspicious features 5. No acute CT findings in the abdomen. - Procedures Closed reduction and external fixation of comminuted bicondylar left tibial plateau fracture Assessment and Plan - Assessment (1) Fracture of tibial plateau, closed Code(s): S82.143A - Displaced bicondylar fracture of unspecified tibia, initial encounter for closed fracture Status: Acute (2) Fracture of fibula, proximal Code(s): S82.839A - Other fracture of upper and lower end of unspecified fibula , initial encounter for closed fracture Status: Acute - Plan 1. Tibial plateau fracture Knee x-ray significant for extremely comminuted fractures of the proximal tibia involving the medial and lateral plateaus with a comminuted and impacted fracture of the fibular head and neck Closed reduction and external fixation of comminuted bicondylar left tibial plateau fracture. Further surgery by orthopedic surgery when swelling much improved, anticipate surgery this week. Continue ice Pain control with Lortab and IV morphine. Physical therapy evaluation Wound care 2. Anemia secondary to acute blood loss. Will monitor 3. Acute kidney injury creatinine 1.49. Likely from rhabdomyolysis will continue IV hydration. Improving. Avoid nephrotoxins 4. Constipation. Improved with bowel regimen. 5. Epig pain with N/V. LFTs and lipase unremarkable. Abdominal CT also unremarkable. Improved continue PPi. If worse GI consult 6. Tiny hepatic lesions and left adrenal gland mass likely benign. Also lipomatous changes in the right lateral chest wall. MRI o/p. 7. New onset hypertension. Improved with hydrochlorothiazide. Pharmacologic anticoagulation per ortho started on Lovenox Discharge Planning: Not ready for discharge patient has external fixator (1) Fracture of tibial plateau, closed Qualifiers: Encounter type: initial encounter Laterality: left Qualified Code(s): S82.142A - Displaced bicondylar fracture of left tibia, initial encounter for closed fracture (2) Fracture of fibula, proximal Qualifiers: Encounter type: initial encounter Fracture type: closed Fracture morphology : unspecified fracture morphology Laterality: left Qualified Code(s): S82.832A - Other fracture of upper and lower end of left fibula, initial encounter for closed fracture
[2017-12-03] MEDS: KCL 20 mEq/NACL 0.45% Inj 1,000 ML IV.CONT SCH ×2 (05:15→15:21)
--- NOTE | 2017-12-03 06:41 | P.PNOP ---
Subjective Interval history: Resting comfortably with no new complaints Physical Exam Vital signs: Vital Signs 12/02/17 08:00 12/02/17 12:00 12/02/17 16:00 Temperature 97.8 F 98.1 F 99.2 F Pulse Rate 86 89 86 Respiratory Rate 19 16 17 Blood Pressure 139/88 144/89 H 134/87 Pulse Oximetry 96 96 97 12/02/17 20:00 12/03/17 00:00 Temperature 99.5 F 98.7 F Pulse Rate 92 H 87 Respiratory Rate 17 17 Blood Pressure 137/86 124/81 Pulse Oximetry 99 99 Intake & Output 12/02/17 12/02/17 12/03/17 06:59 18:59 06:59 Intake Total 1000 / 1000 1600 / 1600 2240 / 2240 Output Total 480 / 480 Balance 1000 / 1000 1600 / 1600 1760 / 1760 Intake: IV 1000 / 1000 1000 / 1000 1999 / 1999 Potassium Chlor 20 mEq/NACL 0. 1000 / 1000 1000 / 1000 1999 / 2000 45% Inj 1,000 ML @ 100 mls/hr IV.CONT .Q10H DEJA Rx#:[id number] Oral 600 / 600 240 / 240 Output: Urine 480 / 480 Other: # Voids 8 Date of Last Bowel Movement 12/01/17 12/01/17 # Bowel Movements 0 Narrative: Left lower extremity: External fixator in place. Swelling is still +2. Skin is intact with no signs of blistering or wounds. Distally intact sensation with active dorsiflexion and plantarflexion of foot Results - Labs CBC & Chem 7: 11/30/17 07:31 12/02/17 08:47 Laboratory Results - last 24 hr 12/02/17 12/02/17 08:47 08:47 Sodium 136 Potassium 3.9 Chloride 99 Carbon Dioxide 25.2 Anion Gap 12 BUN 14 Creatinine 1.18 Estimated GFR 75 L Random Glucose 104 Calcium 9.4 Magnesium 2.3 - Procedures Closed reduction and external fixation of comminuted bicondylar left tibial plateau fracture Assessment and Plan - Assessment and Plan 1) Left Bicondylar Tibial Plateau Fx s/p exfix - POD 4 -NWB -elevate at all times -ice down knee and lower leg with large trash bags of ice -toradol -pin care BID with saline/peroxide mix -will re-eval each day for swelling to improve. once swelling is at acceptable level, will plan for ORIF of tibial plateau. Hopefully will be ready by or Saturday
[2017-12-03] MEDS: Multivitamin/Minerals Therapeutic Tablet PO SCH (09:26)
[2017-12-03] MEDS: Famotidine 20 MG Tablet PO SCH ×2 (09:26→20:09)
[2017-12-03] MEDS: Enoxaparin Inj 40 MG/0.4 ML Syringe SQ SCH (09:26)
[2017-12-03] MEDS: hydroCHLOROthiazide 25 MG Tablet PO SCH (09:26)
[2017-12-03] MEDS: Senna/Docusate Sodium 8.6/50 MG Tablet PO SCH ×2 (09:27→20:09)
--- NOTE | 2017-12-03 14:47 | P.PN ---
Subjective Interval history: Nursing denies any deterioration since last night. Patient denies any nausea. Has no new complaints. Physical Exam Vital signs: Vital Signs 12/02/17 16:00 12/02/17 20:00 12/03/17 00:00 Temperature 99.2 F 99.5 F 98.7 F Pulse Rate 86 92 H 87 Respiratory Rate 17 17 17 Blood Pressure 134/87 137/86 124/81 Pulse Oximetry 97 99 99 12/03/17 08:00 12/03/17 11:59 Temperature 98.0 F 98.5 F Pulse Rate 78 93 H Respiratory Rate 19 18 Blood Pressure 140/74 134/83 Pulse Oximetry 97 98 Intake & Output 12/02/17 12/03/17 12/03/17 18:59 06:59 18:59 Intake Total 1600 / 1600 2240 / 2240 Output Total 480 / 480 Balance 1600 / 1600 1760 / 1760 Intake: IV 1000 / 1000 1999 / 1999 Potassium Chlor 20 mEq/NACL 0. 1000 / 1000 1999 / 1999 45% Inj 1,000 ML @ 100 mls/hr IV.CONT .Q10H DEJA Rx#:[id number] Oral 600 / 600 240 / 240 Output: Urine 480 / 480 Other: # Voids 8 Date of Last Bowel Movement 12/01/17 12/01/17 # Bowel Movements 0 Narrative: Left leg in external fixator, no purulence noted from insertion sites, lying in bed, no acute distress Results - Labs CBC & Chem 7: 11/30/17 07:31 12/02/17 08:47 - Procedures Closed reduction and external fixation of comminuted bicondylar left tibial plateau fracture Assessment and Plan - Assessment (1) Fracture of tibial plateau, closed Code(s): S82.143A - Displaced bicondylar fracture of unspecified tibia, initial encounter for closed fracture Status: Acute (2) Fracture of fibula, proximal Code(s): S82.839A - Other fracture of upper and lower end of unspecified fibula , initial encounter for closed fracture Status: Acute - Plan 1. Tibial plateau fracture Knee x-ray significant for extremely comminuted fractures of the proximal tibia involving the medial and lateral plateaus with a comminuted and impacted fracture of the fibular head and neck Closed reduction and external fixation of comminuted bicondylar left tibial plateau fracture. POD 4 Further surgery by orthopedic surgery when swelling much improved, anticipate surgery this week. Continue ice Pain control with Lortab and IV morphine. Physical therapy evaluation Wound care 2. Anemia secondary to acute blood loss. stable 3. Acute kidney injury creatinine improved, may stop IVFs. 4. Constipation. bowel regimen 5. Epig pain with N/V. LFTs and lipase unremarkable. stable with PPi. avoid NSAIDS. If worse GI consult 6. Tiny hepatic lesions and left adrenal gland mass likely benign. Also lipomatous changes in the right lateral chest wall. MRI o/p. 7. New onset hypertension. Improved with hydrochlorothiazide. Pharmacologic anticoagulation per ortho started on Lovenox (1) Fracture of tibial plateau, closed Qualifiers: Encounter type: initial encounter Laterality: left Qualified Code(s): S82.142A - Displaced bicondylar fracture of left tibia, initial encounter for closed fracture (2) Fracture of fibula, proximal Qualifiers: Encounter type: initial encounter Fracture type: closed Fracture morphology : unspecified fracture morphology Laterality: left Qualified Code(s): S82.832A - Other fracture of upper and lower end of left fibula, initial encounter for closed fracture
--- NOTE | 2017-12-04 07:18 | P.PNOP ---
Subjective Interval history: Resting comfortably with no new complaints Physical Exam Vital signs: Vital Signs 12/03/17 08:00 12/03/17 11:59 12/03/17 16:00 Temperature 98.0 F 98.5 F 98.9 F Pulse Rate 78 93 H 94 H Respiratory Rate 19 18 19 Blood Pressure 140/74 134/83 123/75 Pulse Oximetry 97 98 96 12/03/17 20:00 12/04/17 00:00 Temperature 98.3 F 98.3 F Pulse Rate 92 H 83 Respiratory Rate 18 18 Blood Pressure 134/84 124/84 Pulse Oximetry 98 99 Intake & Output 12/03/17 12/04/17 12/04/17 18:59 06:59 18:59 Intake Total 1500 / 1500 240 / 240 Balance 1500 / 1500 240 / 240 Weight 98 kg Intake: IV 1000 / 1000 Potassium Chlor 20 mEq/NACL 0. 1000 / 1000 45% Inj 1,000 ML @ 100 mls/hr IV.CONT .Q10H DEJA Rx#:[id number] Oral 500 / 500 240 / 240 Other: # Voids 3 3 Date of Last Bowel Movement 12/01/17 12/01/17 # Bowel Movements 0 1 Results - Labs CBC & Chem 7: 11/30/17 07:31 12/02/17 08:47 - Procedures Closed reduction and external fixation of comminuted bicondylar left tibial plateau fracture Assessment and Plan - Assessment and Plan 1) Left Bicondylar Tibial Plateau Fx s/p exfix - POD 5 -NWB -elevate at all times -ice down knee and lower leg with large trash bags of ice -toradol 2 doses q8h -pin care BID with saline/peroxide mix -N.p.o. after midnight Hold Lovenox
[2017-12-04] MEDS: Famotidine 20 MG Tablet PO SCH ×2 (09:02→21:06)
[2017-12-04] MEDS: Multivitamin/Minerals Therapeutic Tablet PO SCH (09:02)
[2017-12-04] MEDS: hydroCHLOROthiazide 25 MG Tablet PO SCH (09:02)
[2017-12-04] MEDS: Senna/Docusate Sodium 8.6/50 MG Tablet PO SCH ×2 (09:02→21:06)
[2017-12-04] MEDS: Ketorolac Inj 30 MG/ML (IVP) Vial IV.PUSH SCH ×2 (09:03→17:17)
--- NOTE | 2017-12-04 13:09 | P.PN ---
Subjective Interval history: Nursing denies any deterioration since last night. Patient himself has no new complaints. Says he has a chronic right-sided abdominal hernia, denies any nausea vomiting. Physical Exam Vital signs: Vital Signs 12/03/17 16:00 12/03/17 20:00 12/04/17 00:00 Temperature 98.9 F 98.3 F 98.3 F Pulse Rate 94 H 92 H 83 Respiratory Rate 19 18 18 Blood Pressure 123/75 134/84 124/84 Pulse Oximetry 96 98 99 12/04/17 08:00 12/04/17 12:00 Temperature 98.3 F 98.0 F Pulse Rate 92 H 88 Respiratory Rate 18 18 Blood Pressure 133/78 159/84 H Pulse Oximetry 97 97 Intake & Output 12/03/17 12/04/17 12/04/17 18:59 06:59 18:59 Intake Total 1500 / 1500 240 / 240 Balance 1500 / 1500 240 / 240 Weight 98 kg Intake: IV 1000 / 1000 Potassium Chlor 20 mEq/NACL 0. 1000 / 1000 45% Inj 1,000 ML @ 100 mls/hr IV.CONT .Q10H DEJA Rx#:[id number] Oral 500 / 500 240 / 240 Other: # Voids 3 3 Date of Last Bowel Movement 12/01/17 12/01/17 12/04/17 # Bowel Movements 0 1 Narrative: Lying in bed, external fixator in place with ice pack over left knee and leg Unlabored breathing, no acute distress Results - Labs CBC & Chem 7: 11/30/17 07:31 12/02/17 08:47 - Procedures Closed reduction and external fixation of comminuted bicondylar left tibial plateau fracture Assessment and Plan - Assessment (1) Fracture of tibial plateau, closed Code(s): S82.143A - Displaced bicondylar fracture of unspecified tibia, initial encounter for closed fracture Status: Acute (2) Fracture of fibula, proximal Code(s): S82.839A - Other fracture of upper and lower end of unspecified fibula , initial encounter for closed fracture Status: Acute - Plan 1. Tibial plateau fracture Knee x-ray significant for extremely comminuted fractures of the proximal tibia involving the medial and lateral plateaus with a comminuted and impacted fracture of the fibular head and neck Closed reduction and external fixation of comminuted bicondylar left tibial plateau fracture. POD 5 Further surgery by orthopedic surgery when swelling much improved, anticipate surgery tomorrow. Continue ice Pain control with Lortab and IV morphine. Physical therapy evaluation Wound care 2. Anemia secondary to acute blood loss. stable 4. Constipation. bowel regimen 5. Epig pain with N/V. LFTs and lipase unremarkable. stable with PPi. avoid NSAIDS. If worse GI consult 6. Tiny hepatic lesions and left adrenal gland mass likely benign. Also lipomatous changes in the right lateral chest wall. MRI o/p. 7. hypertension. hydrochlorothiazide. Pharmacologic anticoagulation per ortho on Lovenox (1) Fracture of tibial plateau, closed Qualifiers: Encounter type: initial encounter Laterality: left Qualified Code(s): S82.142A - Displaced bicondylar fracture of left tibia, initial encounter for closed fracture (2) Fracture of fibula, proximal Qualifiers: Encounter type: initial encounter Fracture type: closed Fracture morphology : unspecified fracture morphology Laterality: left Qualified Code(s): S82.832A - Other fracture of upper and lower end of left fibula, initial encounter for closed fracture
--- NOTE | 2017-12-05 06:57 | P.PNOP ---
Subjective Interval history: s/p exfix left tibial plateau doing well. improving Physical Exam Vital signs: Vital Signs 12/04/17 08:00 12/04/17 12:00 12/04/17 16:00 Temperature 98.3 F 98.0 F 98.3 F Pulse Rate 92 H 88 88 Respiratory Rate 18 18 18 Blood Pressure 133/78 159/84 H 136/81 Pulse Oximetry 97 97 96 12/04/17 20:00 12/05/17 00:00 Temperature 98.3 F 98.2 F Pulse Rate 82 80 Respiratory Rate 20 20 Blood Pressure 129/83 141/81 H Pulse Oximetry 100 100 Intake & Output 12/04/17 12/04/17 12/05/17 06:59 18:59 06:59 Intake Total 240 / 240 960 / 960 Output Total 1200 / 1200 Balance 240 / 240 -240 / -240 Weight 98 kg Intake: Oral 240 / 240 960 / 960 Output: Urine 1200 / 1200 Other: # Voids 3 Date of Last Bowel Movement 12/01/17 12/04/17 12/04/18 # Bowel Movements 1 Narrative: LLE: +exfix. pin sites clean. 1+ swelling of lower leg. compartments soft. nvi Results - Labs CBC & Chem 7: 11/30/17 07:31 12/02/17 08:47 - Procedures Closed reduction and external fixation of comminuted bicondylar left tibial plateau fracture Assessment and Plan - Assessment and Plan 1) Left Bicondylar Tibial Plateau Fx s/p exfix - POD 6 -NWB -elevate at all times -ice down knee and lower leg with large trash bags of ice -plan for surgery today with Dr Gongora for ORIF and possible removal of exfix -sign consents
[2017-12-05] MEDS ORDERED: Metoprolol Tartrate 25 MG Tablet PO SCH (08:30)
[2017-12-05] MEDS ORDERED: Chlorhexidine Gluconate 2% 1 Pack (2 Cloths) TOPICAL SCH (08:30)
[2017-12-05] MEDS ORDERED: fentaNYL Citrate Inj 100 MCG/2 ML Ampul ONE (08:39)
[2017-12-05] MEDS ORDERED: Famotidine PF Inj 20 MG/2 ML Vial ONE (08:39)
[2017-12-05] MEDS ORDERED: Ketamine Inj 50 MG/5 ML Syringe IV.PUSH ONE (08:40)
[2017-12-05] MEDS ORDERED: Sodium Chlor 0.9% Inj 500 ML IV.SIG SCH (09:00)
[2017-12-05] MEDS ORDERED: ceFAZolin 2 GM Premix Inj 2 GM/50 ML PIGGYBACK IV.SIG ONE (09:03)
[2017-12-05] MEDS ORDERED: fentaNYL Citrate Inj 250 MCG/5 ML Ampul ONE (10:31)
[2017-12-05] MEDS ORDERED: Post-op Orders (for Pharmacy) OTHER STA (11:38)
--- NOTE | 2017-12-05 11:38 | P.OP ---
- Preoperative Diagnosis (1) Closed bicondylar fracture of right tibial plateau Date of procedure: 12/05/17 Procedure: Open reduction internal fixation right bicondylar tibial plateau fracture, revision of external fixation Anesthesia: ÁNGELA Surgeon: Billy Celestin MD Airframe Design Engineer: FREYA Tobias PA-C The surgical procedure was assisted by my physician assistant professor of business. My P.A. presence was necessary throughout this case for the manipulation and positioning of the surgical extremity. My P.A. was assisting me throughout the duration of this procedure. The skill set of a physician assistant professor of business was medically necessary to complete this procedure. During the surgical case the surgical territory manager was working at the back table and the physician assistant professor of business was directly assisting me. Operation and Findings: Implants used: ITS medial tibial plateau plate, Biomet lateral tibial plateau plate Plan of activity: Nonweightbearing right lower extremity, plan on ex fix removal in 4-6 weeks Details of procedure: This patient was seen and evaluated preoperatively. Patient sustained an injury resulting a bicondylar right tibial plateau fracture. Informed consent was obtained preoperatively after detailed discussion of the risks and benefits of surgery. Risk of surgery including bleeding, infection, nonunion, painful hardware, stiffness, loss of motion, arthritis, need for knee replacement, as well as medical complications including blood clots, stroke, heart attack, and were discussed. I also discussed the possibility of using allograft bone graft . Preoperatively the operative site was marked. Patient was brought to the operating room and placed on the operating room table. Intravenous sedation and general endotracheal anesthesia were administered. IV antibiotics were given and a time out procedure was preformed. Procedure began with removal of the external fixator. Clamps were loosened. Bars and clamps were now removed. The pins were left in place. Next,the operative leg was prepped with alcohol followed by Hibiclens and draped in the usual sterile fashion. Attention was now turned towards the medial tibial plateau. A 5 inch incision was made over the posterior medial aspect of the tibial plateau. Saphenous vein was protected. The PES insertion was elevated to expose the posterior medial tibial plateau. Fracture was visualized. The articular surface was also visualized. The medial meniscus was completely torn and unrepairable. Attention was now turned toward reduction. Traction was applied. A temporary external fixator was placed across the pins. The fracture was gently distracted and general alignment was attained. The medial plateau was split into 2 main fragments. Fracture fragments were manipulated. Fractures keyed in excellent alignment. A fracture tenaculum was used to compress fracture. K wires were used for provisional fixation. Fluoroscopy confirmed excellent alignment of fracture. Two 3.5 cortical lag screws were placed from anterior to posterior. Good compression was obtained. A ITS plate was now placed along the posterior medial tibial plateau. Plate was provisionally held to bone with K wires. Fluoroscopy confirmed plate placement. 3.5 cortical screws were used to compress plate to bone. Additional locking screws were placed proximally. Next a 5-inch curvilinear incision over the anterolateral knee. Subcutaneous tissue was treated with Bovie. Iliotibial band was split in line with fibers. A sub-meniscal arthrotomy was created and the lateral articular surface was visualized. There was significant comminution and depression of the articular surface. The articular surface was in multiple fragments. There was significant cartilage injury. Bone tamps used to elevate the articular surface. Articular surface reduced into excellent alignment. K-wires were used for provisional fixation. The cortical fragments were now reduced. Fluoroscopy revealed excellent alignment of fracture. A Biomet proximal tibial plate was selected. The plate was provisionally held with K-wires. 3.5 cortical screws were used compress plate to bone distally, and a periarticular clamp was used to compress the medial and lateral tibial plateau fracture fragments together. Multiple locking screws were now placed proximally. Additional screws were placed in the shaft. K-wires were removed. Final fluoroscopy showed excellent alignment of fracture with well-placed hardware. The incision was thoroughly irrigated. Attention was now returned back to the medial plate. Additional locking screws were placed proximally within the plate. All screws were predrilled and premeasured for appropriate length. Incisions were thoroughly irrigated. Attention was now turned to closure. Fascia and iliotibial band were closed with #1 Vicryl,. Subcutaneous tissues closed with 3-0 Vicryl and skin was closed with miriam. Sterile dressings were applied. The temporary external fixator was now removed. Patient's original external fixator was now placed back onto the pins. The knee was held in a well reduced position and the external fixator was tightened. External fixator will be left on for 4-6 weeks because of patient's severe comminution of the articular surface. The patient was transferred to recovery in stable condition.
[2017-12-05] MEDS ORDERED: *morphine SULFATE 10 MG/ML PERIprocedure ONLY ONE ×2 (12:01→12:14)
[2017-12-05] MEDS ORDERED: HYDROmorphone PF Inj 2 MG/ML Vial ONE (12:33)
[2017-12-05] MEDS: Senna/Docusate Sodium 8.6/50 MG Tablet PO SCH ×2 (13:37→20:59)
[2017-12-05] MEDS: hydroCHLOROthiazide 25 MG Tablet PO SCH (13:37)
[2017-12-05] MEDS: Multivitamin/Minerals Therapeutic Tablet PO SCH (13:37)
[2017-12-05] MEDS: Famotidine 20 MG Tablet PO SCH ×2 (13:38→20:59)
--- NOTE | 2017-12-05 14:01 | XR ---
EXAM DATE: 12/05/2017 1:38 PM EDT AGE/SEX: 62 years / Male INDICATIONS: Left knee ORIF and ex-fix. CLINICAL DATA: This is the patient's subsequent encounter. Patient reports that signs and symptoms h ave been present for 1 day and indicates a pain score of Nonresponsive. MEDICAL/SURGICAL HISTORY: None. . Left knee ex-fix. COMPARISON: [facility] – [place], KNEE LIMITED LEFT 05/21V, 11/27/2017. . FINDINGS: Intraoperative images show open reduction and internal fixation of the severely comminuted tibial mode teau fracture with intra-articular extension with 2 sideplates and multiple osseous screws. Fracture fragments are in adequate anatomic alignment. Fracture through the proximal fibular metadiaphysis is stable. CONCLUSION: Successful open reduction and internal fixation of the severely comminuted tibial plateau fracture wi th intra-articular extension as above. Electronically signed by: Sergio Alonso MD 12/05/2017 1:59 PM EDT
[2017-12-05] MEDS: Morphine Inj 4 MG/ML Vial IV.PUSH PRN (14:20)
[2017-12-05] MEDS: ceFAZolin 2 GM Premix Inj 2 GM/50 ML PIGGYBACK IV.SIG SCH (17:54)
[2017-12-05] MEDS: Ketorolac Inj 30 MG/ML (IVP) Vial IV.PUSH SCH (17:55)
--- NOTE | 2017-12-05 19:22 | P.PNIM ---
Subjective Interval history: Mr. Joseph was afebrile with stable VS overnight. Patient seen this evening after Ex fix revision of his right tibial plateau fracture. Patient reports that his pain is controlled. Patient states that he is hungry and passing gas well. Normal urination. Normal breathing; patient using his incentive spirometry frequently. Physical Exam Vital signs: Vital Signs 12/04/17 20:00 12/05/17 00:00 12/05/17 08:00 Temperature 98.3 F 98.2 F 98.2 F Pulse Rate 82 80 80 Respiratory Rate 20 20 17 Blood Pressure 129/83 141/81 H 143/86 H Pulse Oximetry 100 100 99 12/05/17 11:57 12/05/17 12:00 12/05/17 12:15 Temperature 97.8 F Pulse Rate 94 H 87 85 Respiratory Rate 14 18 16 Blood Pressure 163/91 H 165/92 H 179/88 H Pulse Oximetry 99 99 96 12/05/17 12:30 12/05/17 12:45 12/05/17 16:00 Temperature 98.5 F 97.1 F L Pulse Rate 88 88 89 Respiratory Rate 16 18 18 Blood Pressure 166/89 H 169/91 H 164/94 H Pulse Oximetry 95 96 97 Intake & Output 12/05/17 12/05/17 12/06/17 06:59 18:59 06:59 Intake Total 1320 / 1320 Output Total 1000 / 1000 Balance 320 / 320 Intake: Oral 720 / 720 Anesthesia Amount 600 / 600 Output: Urine 800 / 800 Estimated Blood Loss 200 / 200 Other: Date of Last Bowel Movement 12/04/18 12/04/18 Narrative: Gen: NAD Skin: dressing and external fixation of left lower extremity present. some onychomycosis present on nails CV: Regular rate and rhythm; normal perfusion Resp: CTAB; normal rate Abd: Soft, nontender. Normal BS MSK:Grossly normal ROM and motor function Neuro: Grossly normal CN; grossly normal peripheral motor/sensory function Results - Labs CBC & Chem 7: 11/30/17 07:31 12/02/17 08:47 - Imaging Impressions Knee X-Ray 12/05/17 00:00 CONCLUSION: Successful open reduction and internal fixation of the severely comminuted tibial plateau fracture with intra-articular extension as above. - Procedures Closed reduction and external fixation of comminuted bicondylar left tibial plateau fracture Assessment and Plan - Assessment (1) Fracture of tibial plateau, closed Code(s): S82.143A - Displaced bicondylar fracture of unspecified tibia, initial encounter for closed fracture Status: Acute (2) Fracture of fibula, proximal Code(s): S82.839A - Other fracture of upper and lower end of unspecified fibula , initial encounter for closed fracture Status: Acute - Plan Mr. Chaves is a 62 yo M with: Left Bicondylar Tibial Plateau Fracture Impression: s/p exfix - POD 6; exfix revision POD 0 Knee x-ray on admission significant for extremely comminuted fractures of the proximal tibia involving the medial and lateral plateaus with a comminuted and impacted fracture of the fibular head and neck -Ortho consulted -NWB -elevate at all times -ice down knee and lower leg with large trash bags of ice -Continue Physical therapy -Continue wound care -Continue pain control with [place], Toradol PRN Anemia Impression: Suspected secondary to acute blood loss. Hgb ~16 on admission to 9.8 -Continue to monitor CBC GI Constipation Impression: Patient passing gas well currently -Continue bowel regimen Epig pain with N/V Impression: Mild AST elevation; lipase unremarkable. -Continue Pepcid, avoid NSAIDS -Consider GI consult if worsening Tiny hepatic lesions and left adrenal gland mass likely benign. Also lipomatous changes in the right lateral chest wall -MRI o/p. HTN Impression: SBP in 150's-160s -Continue HCTZ 25mg daily -Continue PRN Vasotec -Will plan to adjust therapy as needed DVT PPX Pharmacologic anticoagulation per ortho Code Status: Full code Discharge Planning: Per management of fracture/Orthopedic recommendations (1) Fracture of tibial plateau, closed Qualifiers: Encounter type: initial encounter Laterality: left Qualified Code(s): S82.142A - Displaced bicondylar fracture of left tibia, initial encounter for closed fracture (2) Fracture of fibula, proximal Qualifiers: Encounter type: initial encounter Fracture type: closed Fracture morphology : unspecified fracture morphology Laterality: left Qualified Code(s): S82.832A - Other fracture of upper and lower end of left fibula, initial encounter for closed fracture
[2017-12-05] MEDS: Vancomycin Inj 1,000 MG in Sodium Chlor 0.9% Inj 250 ML IV.SIG SCH (21:01)
[2017-12-06] MEDS: ceFAZolin 2 GM Premix Inj 2 GM/50 ML PIGGYBACK IV.SIG SCH ×3 (01:00→18:37)
[2017-12-06] MEDS: Ketorolac Inj 30 MG/ML (IVP) Vial IV.PUSH SCH (02:09)
--- NOTE | 2017-12-06 06:51 | P.PNOP ---
Subjective Interval history: POD 1 s/p ORIF left tibial plateau doing well. pain controlled. resting comfortably Physical Exam Vital signs: Vital Signs 12/05/17 08:00 12/05/17 11:57 12/05/17 12:00 Temperature 98.2 F 97.8 F Pulse Rate 80 94 H 87 Respiratory Rate 17 14 18 Blood Pressure 143/86 H 163/91 H 165/92 H Pulse Oximetry 99 99 99 12/05/17 12:15 12/05/17 12:30 12/05/17 12:45 Temperature 98.5 F Pulse Rate 85 88 88 Respiratory Rate 16 16 18 Blood Pressure 179/88 H 166/89 H 169/91 H Pulse Oximetry 96 95 96 12/05/17 16:00 12/05/17 20:00 12/06/17 00:00 Temperature 97.1 F L 98.4 F 98.2 F Pulse Rate 89 123 H 111 H Respiratory Rate 18 20 20 Blood Pressure 164/94 H 157/75 H 151/83 H Pulse Oximetry 97 100 95 Intake & Output 12/05/17 12/05/17 12/06/17 06:59 18:59 06:59 Intake Total 1320 / 1320 1350 / 1350 Output Total 1000 / 1000 Balance 320 / 320 1350 / 1350 Intake: IV 1350 / 1350 LR 1000 mL Inj 1,000 ML @ 80 1000 / 1000 mls/hr IV.CONT .[id number] DEJA Rx# :[id number] Vancomycin Inj 1,000 MG In NS 250 / 250 Inj 250 ML @ 250 mls/hr IV.SIG Q12H DEJA Rx#:[id number] Ancef 2 GM Premix Inj 2 gm In 100 / 100 50 ml @ 100 mls/hr IV.SIG Q8H DEJA Rx#:[id number] Oral 720 / 720 Anesthesia Amount 600 / 600 Output: Urine 800 / 800 Estimated Blood Loss 200 / 200 Other: Date of Last Bowel Movement 12/04/18 12/04/18 12/04/18 Narrative: LLE: dressings clean and dry. intact. +exfix with pin sites clean. + dorsiflexion of foot and ankle. compartments soft Results - Labs CBC & Chem 7: 11/30/17 07:31 12/02/17 08:47 - Imaging Impressions Knee X-Ray 07/19/18 00:00 CONCLUSION: Successful open reduction and internal fixation of the severely comminuted tibial plateau fracture with intra-articular extension as above. - Procedures Closed reduction and external fixation of comminuted bicondylar left tibial plateau fracture Assessment and Plan - Assessment and Plan 1) Left Bicondylar Tibial Plateau Fx s/p ORIF with revision of exfix - POD 1 -NWB -elevate -pin care BID -daily dressing changes of surgical incisions beginning POD 2 -DVT prophylaxis with lovenox and DC with xarelto - for rehab vs home with C -work with PT today -plan for DC once stable and ambulating well with therapy -scripts on chart -f/u with [facility] or [facility] in 2 weeks
--- NOTE | 2017-12-06 06:52 | P.DCO ---
- Physical Therapy Physical Therapy: Gait training, Transfer training, bed to chair, Wheelchair training Knee: Knee fracture, Protocol: Left, Non weight bearing - Nursing Nursing: Teach and assist BID pin care Dressing changes: Daily dressing change, Xeroform, Coverderm/Primapore - Certification Need for Home Health services: I have seen patient Jake Chaves on 12/06/17. My clinical findings support the need for the requested home health care services because: Need for Home Health Services: Limited mobility due to disease progression Homebound Certification: I certify that my clinical findings support that this patient is homebound because: Homebound Certification: Post-op weakness
[2017-12-06] MEDS: Vancomycin Inj 1,000 MG in Sodium Chlor 0.9% Inj 250 ML IV.SIG SCH (08:35)
[2017-12-06] MEDS: Famotidine 20 MG Tablet PO SCH ×2 (08:36→21:38)
[2017-12-06] MEDS: Senna/Docusate Sodium 8.6/50 MG Tablet PO SCH ×2 (08:36→21:37)
[2017-12-06] MEDS: Multivitamin/Minerals Therapeutic Tablet PO SCH (08:37)
[2017-12-06] MEDS ORDERED: Enoxaparin Inj 30 MG/0.3 ML Syringe SQ SCH (09:00)
[2017-12-06 09:32] LABS: Baso # (Auto) 0.1 th/mm3 (0.0-0.2); Baso % (Auto) 0.6 % (0.0-2.0); Eos # (Auto) 0.1 th/mm3 (0.0-0.4); Eos % (Auto) 0.5 % (0.0-4.0); Hematocrit 27.4 % (39.0-51.0); Hemoglobin 9.2 gm/dL (13.0-17.0); Lymph # (Auto) 2.2 th/mm3 (1.0-4.8); Lymph % (Auto) 20.4 % (9.0-44.0); Mean Corpuscular HGB Conc 33.5 % (32.0-36.0); Mean Corpuscular Hemoglobin 27.2 pg (27.0-34.0); Mean Corpuscular Volume 81.2 fL (80.0-100.0); Mean Platelet Volume 7.3 fL (7.0-11.0); Mono # (Auto) 0.9 th/mm3 (0.0-0.9); Mono % (Auto) 8.2 % (0.0-8.0); Neut # (Auto) 7.7 th/mm3 (1.8-7.7); Neut % (Auto) 70.3 % (16.0-70.0); Platelet Count 389 th/mm3 (150-450); Red Blood Count 3.38 mil/mm3 (4.50-5.90); Red Cell Distribution Width 14.4 % (11.6-17.2)
[2017-12-06 10:02] LABS: Carbon Dioxide 22.6 meq/L (21.0-32.0)
--- NOTE | 2017-12-06 10:51 | P.PNIM ---
Subjective Interval history: Mr. Chaves was afebrile with mild tachycardia (HR ~100-110bpm) and mild intermittent HTN overnight. Patient reports that he is doing well overall; no significant pain. Patient requests assistance with DME equipment on discharge for easier transfers with leg in extension. Patient states he has been working with physical therapy. Patient does not report shortness of breath, abnormal urination, or abnormal bowel movements. Physical Exam Vital signs: Vital Signs 12/05/17 11:57 12/05/17 12:00 12/05/17 12:15 Temperature 97.8 F Pulse Rate 94 H 87 85 Respiratory Rate 14 18 16 Blood Pressure 163/91 H 165/92 H 179/88 H Pulse Oximetry 99 99 96 12/05/17 12:30 12/05/17 12:45 12/05/17 16:00 Temperature 98.5 F 97.1 F L Pulse Rate 88 88 89 Respiratory Rate 16 18 18 Blood Pressure 166/89 H 169/91 H 164/94 H Pulse Oximetry 95 96 97 12/05/17 20:00 12/06/17 00:00 12/06/17 08:00 Temperature 98.4 F 98.2 F 98.1 F Pulse Rate 123 H 111 H 89 Respiratory Rate 20 20 18 Blood Pressure 157/75 H 151/83 H 125/82 Pulse Oximetry 100 95 100 Intake & Output 12/05/17 12/06/17 12/06/17 18:59 06:59 18:59 Intake Total 1320 / 1320 1350 / 1350 2049 Output Total 1000 / 1000 Balance 320 / 320 1350 / 1350 2049 Intake: IV 1350 / 1350 2049 LR 1000 mL Inj 1,000 ML @ 80 1000 / 1000 mls/hr IV.CONT .[id number] DEJA Rx# :[id number] Vancomycin Inj 1,000 MG In NS 250 / 250 Inj 250 ML @ 250 mls/hr IV.SIG Q12H DEJA Rx#:[id number] Ancef 2 GM Premix Inj 2 gm In 100 / 100 50 ml @ 100 mls/hr IV.SIG Q8H DEJA Rx#:[id number] Oral 720 / 720 Anesthesia Amount 600 / 600 Output: Urine 800 / 800 Estimated Blood Loss 200 / 200 Other: Date of Last Bowel Movement 12/04/18 12/04/18 Narrative: Gen: NAD Skin: dressing and external fixation of left lower extremity present. some onychomycosis present on nails CV: Regular rate and rhythm; normal perfusion Resp: CTAB; normal rate Abd: Soft, nontender. Normal BS MSK:Grossly normal ROM and motor function. Patient able to mobilize to sit upright in bed with straight left lower extremity Neuro: Grossly normal CN; grossly normal peripheral motor/sensory function Results - Labs CBC & Chem 7: 12/06/17 07:55 12/06/17 07:55 Laboratory Results - last 24 hr 12/06/17 12/06/17 07:55 07:55 WBC 11.0 RBC 3.38 L Hgb 9.2 L Hct 27.4 L MCV 81.2 MCH 27.2 MCHC 33.5 RDW 14.4 Plt Count 389 D MPV 7.3 Neut % (Auto) 70.3 H Lymph % (Auto) 20.4 [place] % (Auto) 8.2 H Eos % (Auto) 0.5 Baso % (Auto) 0.6 Neut # (Auto) 7.7 Lymph # (Auto) 2.2 [place] # (Auto) 0.9 Eos # (Auto) 0.1 Baso # (Auto) 0.1 WBC Differential . Differential Comment Auto diff final Sodium 139 Potassium 4.0 Chloride 104 Carbon Dioxide 22.6 Anion Gap 12 BUN 21 H Creatinine 1.21 Estimated GFR 73 L Random Glucose 93 Calcium 9.0 - Imaging Impressions Knee X-Ray 12/05/17 00:00 CONCLUSION: Successful open reduction and internal fixation of the severely comminuted tibial plateau fracture with intra-articular extension as above. - Procedures Closed reduction and external fixation of comminuted bicondylar left tibial plateau fracture Assessment and Plan - Assessment (1) Fracture of tibial plateau, closed Code(s): S82.143A - Displaced bicondylar fracture of unspecified tibia, initial encounter for closed fracture Status: Acute (2) Fracture of fibula, proximal Code(s): S82.839A - Other fracture of upper and lower end of unspecified fibula , initial encounter for closed fracture Status: Acute - Plan Mr. Chaves is a 62 yo M with: Left Bicondylar Tibial Plateau Fracture Impression: s/p exfix - POD 7; exfix revision POD 1 Knee x-ray on admission significant for extremely comminuted fractures of the proximal tibia involving the medial and lateral plateaus with a comminuted and impacted fracture of the fibular head and neck -Ortho consulted -Ancef x total of 6 doses q8hrs -NWB -elevate at all times -ice down knee and lower leg with large trash bags of ice -Dressing changes beginning POD 2 -Plan for Xarelto on discharge for DVT PPX -Plan for f/u in 2 weeks -Continue Physical therapy -Continue wound care -Continue pain control with [place], Toradol PRN Anemia Impression: Suspected secondary to acute blood loss. Hgb 12.5->9.1 since admission -Continue to monitor CBC GI Constipation Impression: Patient passing gas well currently -Continue bowel regimen Epig pain with N/V Impression: Mild AST elevation; lipase unremarkable. -Continue Pepcid, avoid NSAIDS Abnormal abdominal imaging Impression: Tiny hepatic lesions and left adrenal gland mass likely benign. Also lipomatous changes in the right lateral chest wall -MRI o/p. HTN Impression: SBP generally in 140's-150's -Will increase HCTZ to 50mg daily -Continue PRN Vasotec -Will plan to adjust therapy as needed DVT PPX Lovenox 30mg BID per ortho; planned transition to Xarelto at discharge Code Status: Full code Discharge Planning: Per management of fracture/Orthopedic recommendations (1) Fracture of tibial plateau, closed Qualifiers: Encounter type: initial encounter Laterality: left Qualified Code(s): S82.142A - Displaced bicondylar fracture of left tibia, initial encounter for closed fracture (2) Fracture of fibula, proximal Qualifiers: Encounter type: initial encounter Fracture type: closed Fracture morphology : unspecified fracture morphology Laterality: left Qualified Code(s): S82.832A - Other fracture of upper and lower end of left fibula, initial encounter for closed fracture
[2017-12-06] MEDS: Enoxaparin Inj 30 MG/0.3 ML Syringe SQ SCH ×2 (11:43→22:07)
[2017-12-06] MEDS: hydroCHLOROthiazide 25 MG Tablet PO SCH ×2 (11:43→23:08)
[2017-12-06] MEDS: Morphine Inj 4 MG/ML Vial IV.PUSH PRN (15:53)
[2017-12-06 21:35] VITALS: RESP 17
[2017-12-07] MEDS: ceFAZolin 2 GM Premix Inj 2 GM/50 ML PIGGYBACK IV.SIG SCH ×2 (01:52→09:58)
--- NOTE | 2017-12-07 07:12 | P.DCO ---
- Physical Therapy Order: Evaluate and treat - Home Health Nursing Order: Medical education, Signs/symptoms of disease process, Wound care and dressing changes - Certification I have seen patient Jake Chaves on 12/07/17. My clinical findings support the need for the requested home health care services because: Deconditioned with increased weakness, High risk of falls I certify that my clinical findings support that this patient is homebound because: Unsteady gait/balance
--- NOTE | 2017-12-07 07:22 | P.PNOP ---
Subjective Interval history: POD 2 s/p ORIF left bicondylar tibial plateau fx with revision exfix doing well. pain controlled. out of bed on own with walker. Physical Exam Vital signs: Vital Signs 12/06/17 08:00 12/06/17 12:00 12/06/17 16:00 Temperature 98.1 F 98.4 F 100.0 F H Pulse Rate 89 97 H 95 H Respiratory Rate 18 17 19 Blood Pressure 125/82 144/78 H 154/89 H Pulse Oximetry 100 99 96 12/06/17 20:00 12/07/17 00:00 Temperature 100.3 F H 98.6 F Pulse Rate 107 H 103 H Respiratory Rate 17 17 Blood Pressure 149/86 H 137/81 Pulse Oximetry 100 100 Intake & Output 12/06/17 12/07/17 12/07/17 18:59 06:59 18:59 Intake Total 3100 / 3100 240 / 240 1350 / 1350 Balance 3100 / 3100 240 / 240 1350 / 1350 Intake: IV 3100 / 3100 1350 / 1350 LR 1000 mL Inj 1,000 ML @ 80 1000 / 1000 mls/hr IV.CONT .[id number] DEJA Rx# :[id number] LR 1000 mL Inj 1,000 ML @ 30 1000 / 1000 mls/hr IV.SIG .Q24H DEJA Rx#: [id number] Ancef 2 GM Premix Inj 2 gm In 50 / 50 100 / 100 50 ml @ 100 mls/hr IV.SIG Q8H DEJA Rx#:[id number] Oral 240 / 240 Other: # Voids 3 Date of Last Bowel Movement 12/04/18 Narrative: LLE: +exfix. pin sites clean and dry. dressings clean and dry. intact. NVI distally with good dorsiflexion. neg todd. compartments soft Results - Labs CBC & Chem 7: 12/06/17 07:55 12/06/17 07:55 Laboratory Results - last 24 hr 12/06/17 12/06/17 07:55 07:55 WBC 11.0 RBC 3.38 L Hgb 9.2 L Hct 27.4 L MCV 81.2 MCH 27.2 MCHC 33.5 RDW 14.4 Plt Count 389 D MPV 7.3 Neut % (Auto) 70.3 H Lymph % (Auto) 20.4 [place] % (Auto) 8.2 H Eos % (Auto) 0.5 Baso % (Auto) 0.6 Neut # (Auto) 7.7 Lymph # (Auto) 2.2 [place] # (Auto) 0.9 Eos # (Auto) 0.1 Baso # (Auto) 0.1 WBC Differential . Differential Comment Auto diff final Sodium 139 Potassium 4.0 Chloride 104 Carbon Dioxide 22.6 Anion Gap 12 BUN 21 H Creatinine 1.21 Estimated GFR 73 L Random Glucose 93 Calcium 9.0 - Procedures Closed reduction and external fixation of comminuted bicondylar left tibial plateau fracture Assessment and Plan - Assessment and Plan 1) Left Bicondylar Tibial Plateau Fx s/p ORIF with revision of exfix - POD 2 -NWB -elevate -pin care BID -daily dressing changes of surgical incisions beginning POD 2 -DVT prophylaxis with lovenox and DC with xarelto -CM for home with [facility]. since self pay, will likely need to be arranged to be taught how to do pin care and dressing changes and sent home with supplies -work with PT today -ortho clear for Dc home -scripts on chart -f/u with [facility] or [facility] in 2 weeks
[2017-12-07 08:12] LABS: Baso # (Auto) 0.1 th/mm3 (0.0-0.2); Baso % (Auto) 0.7 % (0.0-2.0); Eos # (Auto) 0.1 th/mm3 (0.0-0.4); Eos % (Auto) 0.8 % (0.0-4.0); Hematocrit 28.3 % (39.0-51.0); Hemoglobin 9.7 gm/dL (13.0-17.0); Lymph % (Auto) 18.3 % (9.0-44.0); Mean Corpuscular HGB Conc 34.2 % (32.0-36.0); Mean Corpuscular Hemoglobin 27.5 pg (27.0-34.0); Mean Corpuscular Volume 80.4 fL (80.0-100.0); Mean Platelet Volume 7.5 fL (7.0-11.0); Mono % (Auto) 8.7 % (0.0-8.0); Neut # (Auto) 7.8 th/mm3 (1.8-7.7); Neut % (Auto) 71.5 % (16.0-70.0); Platelet Count 412 th/mm3 (150-450); Red Blood Count 3.52 mil/mm3 (4.50-5.90); Red Cell Distribution Width 14.8 % (11.6-17.2)
[2017-12-07 08:37] LABS: Alanine Aminotransferase 46 U/L (12-78); Albumin 3.4 g/dL (3.4-5.0); Anion Gap 10 meq/L (5-15); Aspartate Aminotransferase 37 U/L (15-37); Blood Urea Nitrogen 18 mg/dL (7-18); Calcium 9.6 mg/dL (8.5-10.1); Carbon Dioxide 26.5 meq/L (21.0-32.0); Chloride 101 meq/L (98-107); Glomerular Filtration Rate 78 mL/min (>89); Glucose,Random 109 mg/dL (74-106); Potassium 4.3 meq/L (3.5-5.1); Sodium 137 meq/L (136-145)
[2017-12-07 08:40] LABS: Alkaline Phosphatase 95 U/L (45-117); Total Protein 7.7 g/dL (6.4-8.2)
[2017-12-07] MEDS: hydroCHLOROthiazide 25 MG Tablet PO SCH (09:56)
[2017-12-07] MEDS: Famotidine 20 MG Tablet PO SCH (09:56)
[2017-12-07] MEDS: Multivitamin/Minerals Therapeutic Tablet PO SCH (09:57)
[2017-12-07] MEDS: Senna/Docusate Sodium 8.6/50 MG Tablet PO SCH (09:58)
[2017-12-07] MEDS: Enoxaparin Inj 30 MG/0.3 ML Syringe SQ SCH (11:52)
--- NOTE | 2017-12-07 12:54 | P.PNIM ---
Subjective Interval history: Mr. Joseph was febrile to 100.3F overnight. Patient does not report current complaints; he states that he feels ready to go home and feels secure with his post-operative follow-up plans. Patient does not report shortness of breath, cough, or changes in urination. Physical Exam Vital signs: Vital Signs 12/06/17 16:00 12/06/17 20:00 12/07/17 00:00 Temperature 100.0 F H 100.3 F H 98.6 F Pulse Rate 95 H 107 H 103 H Respiratory Rate 19 17 17 Blood Pressure 154/89 H 149/86 H 137/81 Pulse Oximetry 96 100 100 12/07/17 08:00 Temperature 98.2 F Pulse Rate 101 H Respiratory Rate 17 Blood Pressure 113/82 Pulse Oximetry 99 Intake & Output 12/06/17 12/07/17 12/07/17 18:59 06:59 18:59 Intake Total 3100 / 3100 240 / 240 1400 / 1400 Balance 3100 / 3100 240 / 240 1400 / 1400 Intake: IV 3100 / 3100 1400 / 1400 LR 1000 mL Inj 1,000 ML @ 80 1000 / 1000 mls/hr IV.CONT .[id number] DEJA Rx# :[id number] LR 1000 mL Inj 1,000 ML @ 30 1000 / 1000 mls/hr IV.SIG .Q24H DEJA Rx#: [id number] Ancef 2 GM Premix Inj 2 gm In 50 / 50 150 / 150 50 ml @ 100 mls/hr IV.SIG Q8H DEJA Rx#:[id number] Oral 240 / 240 Other: # Voids 3 Date of Last Bowel Movement 12/04/18 Narrative: Gen: NAD Skin: dressing and external fixation of left lower extremity present. some onychomycosis present on nails CV: Regular rate and rhythm; normal perfusion Resp: CTAB; normal rate Abd: Soft, nontender. Normal BS MSK:Grossly normal ROM and motor function. Patient able to mobilize to sit upright in bed with straight left lower extremity Neuro: Grossly normal CN; grossly normal peripheral motor/sensory function Results - Labs CBC & Chem 7: 12/07/17 07:07 12/07/17 07:07 Laboratory Results - last 24 hr 12/07/17 12/07/17 07:07 07:07 WBC 11.0 RBC 3.52 L Hgb 9.7 L Hct 28.3 L MCV 80.4 MCH 27.5 MCHC 34.2 RDW 14.8 Plt Count 412 MPV 7.5 Neut % (Auto) 71.5 H Lymph % (Auto) 18.3 [place] % (Auto) 8.7 H Eos % (Auto) 0.8 Baso % (Auto) 0.7 Neut # (Auto) 7.8 H Lymph # (Auto) 2.0 [place] # (Auto) 1.0 H Eos # (Auto) 0.1 Baso # (Auto) 0.1 WBC Differential . Differential Comment Auto diff final Sodium 137 Potassium 4.3 Chloride 101 Carbon Dioxide 26.5 Anion Gap 10 BUN 18 Creatinine 1.15 Estimated GFR 78 L Random Glucose 109 H Calcium 9.6 Total Bilirubin 0.6 AST 37 ALT 46 Alkaline Phosphatase 95 Total Protein 7.7 Albumin 3.4 - Procedures Closed reduction and external fixation of comminuted bicondylar left tibial plateau fracture Assessment and Plan - Assessment (1) Fracture of tibial plateau, closed Code(s): S82.143A - Displaced bicondylar fracture of unspecified tibia, initial encounter for closed fracture Status: Acute (2) Fracture of fibula, proximal Code(s): S82.839A - Other fracture of upper and lower end of unspecified fibula , initial encounter for closed fracture Status: Acute - Plan Mr. Chaves is a 62 yo M with: Left Bicondylar Tibial Plateau Fracture Impression: s/p exfix - POD 8; exfix revision POD 2 Knee x-ray on admission significant for extremely comminuted fractures of the proximal tibia involving the medial and lateral plateaus with a comminuted and impacted fracture of the fibular head and neck -Ortho consulted -Ancef x total of 6 doses q8hrs -NWB -elevate at all times -ice down knee and lower leg with large trash bags of ice -Dressing changes -Plan for Xarelto on discharge for DVT PPX x14 days -Plan for f/u in 2 weeks -[facility]; since self pay, will need assistance w/ pin care and dressing changes/ sent home with supplies -Continue Physical therapy -Continue wound care -Continue pain control with Bitely, Toradol PRN Post-op fever Impression: T100.3F overnight x1, otherwise afebrile. No obvious respiratory, urinary, or incision infection; suspect likely atelectasis -Discussed monitoring as outpatient vs checking UA and CXR while in hospital; agreed to check CXR and UA prior to discharge Anemia Impression: Suspected secondary to acute blood loss. Hgb 12.5->9.7 since admission; stable GI Constipation Impression: Patient passing gas well currently -Continue bowel regimen Epig pain with N/V Impression: Mild AST elevation; lipase unremarkable. -Continue Pepcid, avoid NSAIDS Abnormal abdominal imaging Impression: Tiny hepatic lesions and left adrenal gland mass likely benign. Also lipomatous changes in the right lateral chest wall -MRI o/p. HTN Impression: SBP generally in 140's-150's -Will increase HCTZ to 50mg daily -Continue PRN Vasotec -Will plan to adjust therapy as needed DVT PPX Lovenox 30mg BID per ortho; planned transition to Xarelto at discharge Code Status: Full code Discharge Planning: Per management of fracture/Orthopedic recommendations; anticipate discharge today (1) Fracture of tibial plateau, closed Qualifiers: Encounter type: initial encounter Laterality: left Qualified Code(s): S82.142A - Displaced bicondylar fracture of left tibia, initial encounter for closed fracture (2) Fracture of fibula, proximal Qualifiers: Encounter type: initial encounter Fracture type: closed Fracture morphology : unspecified fracture morphology Laterality: left Qualified Code(s): S82.832A - Other fracture of upper and lower end of left fibula, initial encounter for closed fracture
--- NOTE | 2017-12-07 13:48 | XR ---
EXAM DATE: 12/07/2017 1:46 PM EDT AGE/SEX: 62 years / Male INDICATIONS: Fever and shortness of breath. CLINICAL DATA: This is the patient's initial encounter. Patient reports that signs and symptoms have been present for 3 days and indicates a pain score of 0/10. MEDICAL/SURGICAL HISTORY: Hypertension. None. COMPARISON: No prior exams available for comparison. FINDINGS: A single AP view of the chest demonstrates the lungs to be symmetrically aerated without evidence of mass, infiltrate or effusion. The cardiomediastinal contours are unremarkable. Osseous structures a re intact. CONCLUSION: The lungs are clear. Electronically signed by: Harshad Blount MD 12/07/2017 1:47 PM EDT
[2017-12-07 16:32] VITALS: TEMP 98.7; O2SAT 100
[2017-12-07 16:33] VITALS: BP 122/82; PULSE 107
[2017-12-07 16:48] LABS: Bilirubin,Urine Negative (Negative); Clarity,Urine Clear (Clear); Color,Urine Yellow (Yellw/Straw); Glucose,Urine (UA) Negative (Negative); Hyaline Casts,Urine 1 /lpf (0-3); Leukocyte Esterase,Urine Negative (Negative); Mucus,Urine Few /lpf (Occasional); Nitrite,Urine Negative (Negative); Specific Gravity,Urine 1.011 (1.002-1.035)
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
== END 2017-12-07 19:23 | disposition home health service (06) ==
LOC: NEPC 15:36 → NEDA 18:48 → N07 21:25
PROVIDERS: ADMIT Family Medicine; ATTEND Family Medicine
PROC: ORIFPAT (2017-11-27 08:03)